=== PATIENT | male | born 1985 ===

== ENCOUNTER 2016-11-30 05:24 | Inpatient (IN) | payer MEDICAID, OTHER ==
--- NOTE | 2016-11-30 05:42 | C.PDOC ---
History Of Present Illness Pt was seen and medically cleared at [facility] and accepted in transfer by dr claudio for depression. Pt denies suicidal or homicidal ideation Time Seen by Provider: 11/30/16 05:39 Chief Complaint (Nursing): Psychiatric Evaluation History Per: Patient History/Exam Limitations: no limitations Onset/Duration Of Symptoms: Days Current Symptoms Are (Timing): Still Present Suicide/Self Injury Attempted (Context): None Modifying Factor(s): None Severity: Moderate Pain Scale Rating Of: 4 Associated Symptoms: Depression Involuntary Hold By: None Recent travel outside of the [place]: No Additional History Per: Patient Past Medical History Reviewed: Historical Data, Nursing Documentation, Vital Signs Vital Signs: Last Vital Signs Temp 97.2 F L 11/30/16 05:34 Pulse 82 11/30/16 05:34 Resp 20 11/30/16 05:34 BP 119/82 11/30/16 05:34 Pulse Ox 100 11/30/16 05:34 - Medical History PMH: Depression Family History: States: No Known Family Hx - Social History Hx Alcohol Use: Yes Hx Substance Use: Yes - Immunization History Hx Tetanus Toxoid Vaccination: No Hx Influenza Vaccination: No Hx Pneumococcal Vaccination: No Review Of Systems Constitutional: Negative for: Fever, Chills Cardiovascular: Negative for: Chest Pain Respiratory: Negative for: Shortness of Breath Gastrointestinal: Negative for: Abdominal Pain Musculoskeletal: Negative for: Back Pain Skin: Negative for: Rash Neurological: Negative for: Weakness Psych: Positive for: Depression Physical Exam - Physical Exam Appears: Non-toxic, No Acute Distress Skin: Warm, Dry Chest: Symmetrical Cardiovascular: Rhythm Regular Respiratory: No Rales, No Rhonchi, No Wheezing Gastrointestinal/Abdominal: Soft, No Tenderness, No Distention Back: No CVA Tenderness Extremity: Normal ROM Extremity: Bilateral: Atraumatic Neurological/Psych: Oriented x3 Gait: Steady ED Course And Treatment O2 Sat by Pulse Oximetry: 100 Pulse Ox Interpretation: Normal Disposition Discussed With : Fernie Claudio Comment: accepted the pt on his service and took over the care at 5:40 AM Doctor Will See Patient In The: Hospital Counseled Patient/Family Regarding: Studies Performed, Diagnosis - Disposition Disposition: HOSPITALIZED Disposition Time: 05:40 Condition: FAIR - POA Present On Arrival: None - Clinical Impression Clinical Impression: Depression Decision To Admit - Pt Status Changed To: Hospital Disposition Of: Inpatient - Admit Certification Admit to Inpatient:: After my assessment, the patient will require hospitalization for at least two midnights. This is because of the severity of symptoms shown, intensity of services needed, and/or the medical risk in this patient being treated as an outpatient. - InPatient: Physician Admission Certification: I certify that this patient requires 2 or more midnights of care for the following reason:: After my assessment, the patient will require hospitalization for at least two midnights. This is because of the severity of symptoms shown, intensity of services needed, and/or the medical risk in this patient being treated as an outpatient. - . Bed Request Type: Psychiatry Admitting Physician: Fernie Claudio Patient Diagnosis: Depression
[2016-11-30] MEDS: Multiple Vitamins Tab PO SCH (10:26)
--- NOTE | 2016-11-30 12:21 | PCM.PSYCH ---
Initial Psychiatric Evaluation - Initial Psychiatric Evaluation Type of Admission: Voluntary Legal Status: Capacity Chief Complaint (in patient's own words): "I need to really stop alcohol" History of Present Illness and Precipitating Events: The patient is seen, chart reviewed and case discussed. This is a 31-year-old male, single but has a girlfriend, lives with his mother and brother in [place], [place]. 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 The patient is here because he reportedly intentionally drank too much alcohol and took couple of Percocet pills. He states he did not intend to kill himself but was very "stressed and depressed." The patient admits to drinking "a lot" and when asked to specify he states more than 2 bottles of liquor and some beer. He increased the last 9 months but started when he was 18 years old. He is also a heavy marijuana smoker and he is smokes cigarettes on and off. He denies all other drugs including opiates. His urine is negative for opiates despite the alleged recent use. He says he feels depressed but he looks less so today. No suicidal ideation today. he also does not have any wdw sxs at this point. Past psych history: He had another suicide attempt similar way when he was 25 years old. He was not admitted back then. Family psych history: Biological father had alcoholism. Medical history: He has been diagnosed with MAC, a lung dz. He was supposed to be on meds but he quit in July due to drinking. The patient wants to go to an inpatient rehabilitation Current Medications: Active Medications Generic Name Dose Route Start Last Admin Trade Name Khushboo PRN Reason Stop Dose Admin Chlordiazepoxide 25 mg 11/30/16 08:45 Librium PO Q4H PRN Alcohol Withdrawal Clonidine HCl 0.1 mg 11/30/16 08:45 Catapres PO Q4H PRN Symptoms of alcohol withdrawl Escitalopram Oxalate 10 mg 11/30/16 10:00 11/30/16 10:26 Lexapro PO 10 mg DAILY SUHA Administration Folic Acid 1 mg 11/30/16 10:00 11/30/16 10:26 Folic Acid PO 1 mg DAILY SUHA Administration Gabapentin 100 mg 11/30/16 10:00 11/30/16 10:25 Neurontin PO 100 mg TID SUHA Administration Hydroxyzine HCl 50 mg 11/30/16 08:46 Atarax PO Q6H PRN Anxiety Ibuprofen 600 mg 11/30/16 08:46 Motrin Tab PO Q6H PRN Pain, moderate (4-7) Multivitamins 1 tab 11/30/16 10:00 11/30/16 10:26 Hexavitamin PO 1 tab DAILY SUHA Administration Pneumococcal Polyvalent Vaccine 0.5 ml 12/02/16 10:00 Pneumovax 23 Vaccine IM 12/02/16 10:01 .ONCE ONE Thiamine HCl 100 mg 11/30/16 10:00 11/30/16 10:26 Vitamin B1 Tab PO 100 mg DAILY SUHA Administration Trazodone HCl 100 mg 11/30/16 08:47 Desyrel PO HS PRN Insomnia Past Psychiatric History - Past Psychiatric History Previous Treatment History: None Pertinent Medical Hx (Current Medical&Sleep Prob, Allergies): Allergies Allergy/AdvReac Type Severity Reaction Status Date / Time No Known Allergies Allergy Verified 11/30/16 05:39 No Known Home Med 11/30/16 Review of Systems - Neurological Neurological: UNREMARKABLE - Psychiatric Psychiatric: Abnormal Sleep Pattern, Anxiety, Difficulty Concentrating. absent : Hallucinations, Homicidal Ideation, Suicidal Ideation Mental Status Examination - Personal Presentation Personal Presentation: Looks stated age - Affect Affect: Broad - Motor Activity Motor Activity: Calm - Reliability in Providing Information Reliability in Providing Information: Good - Speech Speech: Organized - Mood Mood: Anxious - Formal Thought Process Formal Thought Process: No Impairment - Cognitive Functions Orientation: Person, Place, Situation, Time Sensorium: Alert Attention/Concentration: Easily distracted Estimate of Intelligence: Average Judgement: Intact, as evidence by: Insight regarding need for hospitalization Memory: Recent intact, as evidence by: Ability to recall events of the day, Remote intact, as evidenced by: Abilit to recall sig. life events - Risk Risk: Withdrawal, Diminished functioning - Strength & Assets Inventory Strength & Assets Inventory: Cooperative DSM 5 DX - DSM 5 DSM 5 Diagnosis: Substance-induced mood d/o - depressed Alcohol use d/o - severe Cannabis use d/o - severe - Recommended/Plan of Treatment Treatment Recommendations and Plan of Treatment: Remeron for depressive sxs naltrexone for alcohol crabings Gabapentin for augmentation As needed meds and vitamins Attend groups and activities [place] for abstinence and CBT for relapse prevention Support and psychoeducation Consider and encourage MAT ie Vivitrol Refer to after care in rehab Sx-based detox 33 min Projected ELOS: 4-5 days Prognosis: good w treatment - Smoking Cessation Smoking Cessation Initiated: Yes
[2016-12-01] MEDS: Multiple Vitamins Tab PO SCH ×2 (11:02→11:56)
[2016-12-02] MEDS ORDERED: Pneumococcal 23-Valent Vaccine IM ONE (10:00)
[2016-12-02] MEDS: Multiple Vitamins Tab PO SCH (10:22)
--- NOTE | 2016-12-02 23:58 | PCM.PYCHPN ---
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 Medical Problems: NOTHING ACUTE Diagnostic Results: REVIEWED DSM 5 Symptoms Update: NO APPETITE INSOMNIA Medication Change: No Medical Record Reviewed: Yes Mental Status Examination - Cognitive Function Orientation: Person, Place, Situation, Time Memory: Intact Attention: WNL Concentration: WNL Association: WNL Fund of Knowledge: WNL - Mood Mood: Depressed, Anxious - Affect Affect: Broad - Speech Speech: Appropriate - Formal Thought Process Formal Thought Process: No Impairment - Suicidal Ideation Suicidal Ideation: No - Homicidal Ideation Homicidal Ideation: No Goal/Treatment Plan - Goal/Treatment Plan Need for Continued Stay: Discharge may exacerbated symptoms Progress Toward Problem(s) and Goals/Treatment Plan: SUBINDUCED MOOD DISORDER TAKING MEDS ALCOHOL USE DISORDER NALTREXONE Estimated Date of D/C: 12/06/16 - Smoking Cessation Smoking Cessation Initiated: Yes
--- NOTE | 2016-12-03 03:02 | PCM.PYCHPN ---
Psychiatric Progress Note - Psychiatric Progress Note Patient seen today, length of contact: 15 MIN Patient Chief Complaint: I TOOK OFF THE BLANKET OTHERSCWEREC STARTING TO CALL ME JOSEMANUEL FROM [employer] AND I GOT IRRITATED Problems Identified/Issues Discussed: WITHDRAWAL SYMPTOMS AFTERCARE Medical Problems: NOTHING ACUTE Diagnostic Results: REVIWED Medication Change: Yes (DOSES CHANGE EACH DAY DETOX) Medical Record Reviewed: Yes Mental Status Examination - Cognitive Function Orientation: Person, Place, Situation, Time Memory: Intact Attention: WNL Concentration: WNL Association: WNL Fund of Knowledge: WNL - Mood Mood: Depressed, Anxious - Affect Affect: Broad - Speech Speech: Appropriate - Suicidal Ideation Suicidal Ideation: No - Homicidal Ideation Homicidal Ideation: No Goal/Treatment Plan - Goal/Treatment Plan Need for Continued Stay: Discharge may exacerbated symptoms Progress Toward Problem(s) and Goals/Treatment Plan: SUBSXTANCE INDUCED MOOD DISORDER TAKING MEDS ALCOHOL USE DISORDER NALTREXONE Estimated Date of D/C: 12/06/16 - Smoking Cessation Smoking Cessation Initiated: Yes
[2016-12-03] MEDS: Multiple Vitamins Tab PO SCH (09:55)
--- NOTE | 2016-12-03 13:52 | PCM.PYCHPN ---
Psychiatric Progress Note - Psychiatric Progress Note Patient seen today, length of contact: 16 min Patient Chief Complaint: "I am better" Problems Identified/Issues Discussed: The pt is seen, chart reviewed, case discussed with staff. Support given, CBT and [place] used briefly No new symptoms reported, improving slowly and needs some more time No SEs from medications, risks discussed. After care discussed - He now says he will move to [place] where his GF who is lives. Medication Change: Yes (detox changes daily) Medical Record Reviewed: Yes Mental Status Examination - Cognitive Function Orientation: Person, Place, Situation, Time Memory: Intact Attention: WNL Concentration: WNL Association: WNL Fund of Knowledge: WN - Mood Mood: Depressed, Anxious - Affect Affect: Broad - Speech Speech: Appropriate - Formal Thought Process Formal Thought Process: No Impairment - Suicidal Ideation Suicidal Ideation: No - Homicidal Ideation Homicidal Ideation: No Goal/Treatment Plan - Goal/Treatment Plan Need for Continued Stay: Discharge may exacerbated symptoms Progress Toward Problem(s) and Goals/Treatment Plan: Remeron for depressive sxs naltrexone for alcohol cravings Gabapentin for augmentation As needed meds and vitamins Attend groups and activities [place] for abstinence and CBT for relapse prevention Support and psychoeducation Consider and encourage MAT ie Vivitrol Refer to after care in rehab Sx-based detox Estimated Date of D/C: 12/06/16
--- NOTE | 2016-12-04 10:20 | PCM.RRTMUL ---
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 Rapid called after patient felt "hot heavy head" and laid down on the floor. Patient was awake, alert and able to provide history. Patient ate this morning, spoke on the phone and began to feel his head was "hot and heavy". He laid down on the floor as witnessed by staff 2/2 symptoms. Patient with history of congenital heart disease, reported pacemaker and heart valve surgery. VS:97.9, 186/123, HR 144. Patient given dose of Clonidine. Stat EKG, CBC, CMP, STANLEY, CXR ordered. Transferred to Telemetry. Medicine team to follow. - A) Initial Vital Signs: Blood Pressure: 186/123 Pulse Rate: 144 Respiratory Rate: 20 Temperature: 97.9 F - B) Neurological Status (Select all that apply): Alert, Responsive, Oriented - C) Respiratory Oxygen Delivery Method: Room Air - Constitutional Appears: In Acute Distress - Head Head Exam: NORMAL INSPECTION, NORMOCEPHALIC - Eyes Eye Exam: EOMI, Normal appearance - Respiratory Exam Respiratory Exam: Clear to Ausculation Bilateral, NORMAL BREATHING PATTERN - Cardiovascular Exam Cardiovascular Exam: Tachycardia, REGULAR RHYTHM, +S1, +S2 - GI/Abdominal Exam GI & Abdominal Exam: Soft - Neurological Exam Neurological Exam: Alert, Awake, Oriented x3 - Extremities Exam Extremities Exam: Full ROM, Normal Inspection. absent: Pedal Edema Plan - B. Assessment of Findings&Treatment Plan atient with history of congenital heart disease, reported pacemaker and heart valve surgery. VS:97.9, 186/123, HR 144. Patient given dose of Clonidine. Stat EKG, CBC, CMP, STANLEY, CXR ordered. EKG showed NSR 102 bpm. Transferred to Telemetry. Medicine team to follow.
--- NOTE | 2016-12-04 11:42 | PCM.PYCHPN ---
Psychiatric Progress Note - Psychiatric Progress Note Patient seen today, length of contact: 16 min Patient Chief Complaint: i m feeling anxious. Problems Identified/Issues Discussed: Patient was seen and evaluated, chart reviewed and discussed with the nurse. Patient remained irritable and agitated. He reports anxiety and shortness of breath. He reports depressed mood and feelings of hopelessness and helplessness. He is taking medication and denied any side effects. His blood pressure and heart rate started getting high. rapid response was called and patient was seen by the medical Dr. Patient will be transferred to the medical floor soon. Medication Change: Yes (DOSES CHANGE EACH DAY DETOX) Medical Record Reviewed: Yes Mental Status Examination - Cognitive Function Orientation: Person, Place, Situation, Time Memory: Intact Attention: WNL Concentration: WNL Association: WNL Fund of Knowledge: WNL - Mood Mood: Depressed, Anxious - Affect Affect: Broad - Speech Speech: Appropriate - Formal Thought Process Formal Thought Process: No Impairment - Suicidal Ideation Suicidal Ideation: No - Homicidal Ideation Homicidal Ideation: No Goal/Treatment Plan - Goal/Treatment Plan Need for Continued Stay: Discharge may exacerbated symptoms Progress Toward Problem(s) and Goals/Treatment Plan: Remeron for depressive sxs naltrexone for alcohol cravings Gabapentin for augmentation As needed meds and vitamins Attend groups and activities [place] for abstinence and CBT for relapse prevention Support and psychoeducation Consider and encourage MAT ie Lorel Refer to after care in rehab Sx-based detox Estimated Date of D/C: 12/06/16
--- NOTE | 2016-12-04 11:55 | RAD ---
Chest x-ray single frontal view History: Syncope. Comparison: None available. Findings: Hyperinflation suggestive for COPD and or emphysematous changes. No focal infiltrate or effusion. Surgical clips project over the left lung apex. Suggestion of an aortic stent in place. Scoliotic curvature of the spine. Impression: No focal infiltrate or effusion.
[2016-12-04] MEDS: Multiple Vitamins Tab PO SCH (12:02)
[2016-12-04 12:09] LABS: ALBUMIN 4.1 g/dL (3.5-5.0)
[2016-12-04 12:10] LABS: BASO % 0.3 % (0.0-2.0); EOS # 0.2 K/uL (0.0-0.7); EOS % 3.2 % (0.0-4.0); HEMOGLOBIN 14.1 g/dL (12.0-18.0); LYMPH # 1.3 K/uL (1.0-4.3); LYMPH % 25.7 % (20.0-40.0); MEAN CELL VOLUME 82.6 fL (80.0-94.0); MEAN CORPUSCULAR HEMOGLOBIN 26.9 pg (27.0-31.0); MEAN CORPUSCULAR HGB CONC 32.5 g/dL (33.0-37.0); MEAN PLATELET VOLUME 10.1 fL (7.2-11.7); MONO # 0.6 K/uL (0.0-0.8); MONO % 12.5 % (0.0-10.0); NEUT % 58.3 % (50.0-75.0); RBC 5.25 Mil/uL (4.40-5.90); RED CELL DISTRIBUTION WIDTH 13.7 % (11.5-14.5); WHITE BLOOD COUNT 5.1 K/uL (4.8-10.8)
[2016-12-04 12:12] LABS: ALB/GLOB RATIO 1.2 (1.0-2.1); ALT/SGPT 30 U/L (21-72); AST/SGOT 30 U/L (17-59); BLOOD UREA NITROGEN 12 mg/dL (9-20); GFR AFRICAN-AMERICAN > 60; GFR NON-AFRICAN AMERICAN > 60
[2016-12-04 12:13] LABS: CALCIUM 9.4 mg/dl (8.6-10.4); MAGNESIUM 2.1 mg/dL (1.6-2.3)
[2016-12-04 12:20] LABS: CK-MB 0.41 ng/mL (0.0-3.38)
--- NOTE | 2016-12-04 15:04 | CT ---
PROCEDURE: CT HEAD WITHOUT CONTRAST. HISTORY: heavy head COMPARISON: None available. TECHNIQUE: Axial computed tomography images were obtained through the head/brain without intravenous contrast. Radiation dose: Total exam DLP = 818.32 mGy-cm. This CT exam was performed using one or more of the following dose reduction techniques: Automated exposure control, adjustment of the mA and/or kV according to patient size, and/or use of iterative reconstruction technique. FINDINGS: HEMORRHAGE: No intracranial hemorrhage. BRAIN: No mass effect or edema. No atrophy or chronic microvascular ischemic changes. VENTRICLES: Unremarkable. No hydrocephalus. CALVARIUM: Unremarkable. PARANASAL SINUSES: Unremarkable as visualized. No significant inflammatory changes. MASTOID AIR CELLS: Unremarkable as visualized. No inflammatory changes. OTHER FINDINGS: None. IMPRESSION: Normal CT of the Head. No intracranial mass, hemorrhage or evidence acute infarct.
--- NOTE | 2016-12-04 16:34 | CP.PCM.CON ---
<Charla Lewis - Last Filed: 12/04/16 17:12> History of Present Illness - History of Present Illness History of Present Illness: Medicine Consult Note- Dr. 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 Patient was diagnosed with MAC in 02/2016 and since then, has started drinking heavily, about 1 liter on average per day. Patient reports feeling depressed since his diagnosis of MAC. Patient reports trying to hurt himself twice by taking Percocet with alcohol and Tylenol with alcohol. Patient has a history of congenital heart disease. At , he had an aortic valve replacement. He has had two stents place, last operation was at 18 years old. Patient was seen and examined at bedside in no acute distress. WASTE PICKER was called this morning due to the patient feeling like his "head was going to explode" and "chest pressure", lightheadedness, and "feeling his pulse in his brain". Currently, the patient states he only has pressure on his chest. He denies feeling lightheaded, headache, palpitations, abdominal pain, nausea, vomiting, and vision changes. Patient denies HIV history. PMd: none PMHx: MAC disgnosed 02/2016; congential heart disease- aortic valve replacement at ; stent at 18 year old PSx: aortic valve replacement at ; stent at 18 year old FamHx: Father- stroke; "several family members have diabetes" Medications: none Allergies: NKDA Review of Systems - Constitutional Constitutional: absent: Chills, Fever, Weight Gain, Weight Loss, Weakness - EENT Eyes: absent: Change in Vision, Other Visual Disturbances Nose/Mouth/Throat: absent: Dysphagia, Sore Throat - Cardiovascular Cardiovascular: Chest Pain. absent: Lightheadedness - Respiratory Respiratory: Dyspnea. absent: Cough - Gastrointestinal Gastrointestinal: absent: Abdominal Pain, Nausea, Vomiting - Genitourinary Genitourinary: absent: Dysuria, Urinary Frequency - Integumentary Integumentary: absent: Unusual Bruising - Neurological Neurological: absent: Headaches, Loss of Vision - Psychiatric Psychiatric: Anxiety, Depression - Endocrine Endocrine: absent: Fatigue, Palpitations - Hematologic/Lymphatic Hematologic: absent: Easy Bleeding, Easy Bruising Past Patient History - Infectious Disease Hx of Infectious Diseases: None - Past Social History Smoking Status: Light Smoker < 10 Cigarettes Daily - CARDIAC Hx Cardiac Disorders: Yes Other/Comment: h/o acute valve replacement - PULMONARY Hx Respiratory Disorders: Yes Other/Comment: h/o MAC- lung disease - NEUROLOGICAL Hx Neurological Disorder: No - HEENT Hx HEENT Problems: No - RENAL Hx Chronic Kidney Disease: No - ENDOCRINE/METABOLIC Hx Endocrine Disorders: No - HEMATOLOGICAL/ONCOLOGICAL Hx Blood Disorders: No - INTEGUMENTARY Hx Dermatological Problems: No - MUSCULOSKELETAL/RHEUMATOLOGICAL Hx Musculoskeletal Disorders: No - GASTROINTESTINAL Hx Gastrointestinal Disorders: Yes Other/Comment: Aortic valve replacement - GENITOURINARY/GYNECOLOGICAL Hx Genitourinary Disorders: No - PSYCHIATRIC Hx Substance Use: Yes - SURGICAL HISTORY Hx Surgeries: Yes Hx Valve Replacement: Yes (from and at age 18 y/o) - ANESTHESIA Hx Anesthesia: Yes Hx Anesthesia Reactions: No Hx Malignant Hyperthermia: No Has any member of the family had a problem w/ anesthesia?: No Meds Allergies/Adverse Reactions: Allergies Allergy/AdvReac Type Severity Reaction Status Date / Time No Known Allergies Allergy Verified 11/30/16 05:39 - Medications Medications: Current Medications Amlodipine Besylate (Norvasc) 5 mg PO DAILY [facility] Last Admin: 12/04/16 12:01 Dose: 5 mg Chlordiazepoxide (Librium) 25 mg PO Q4H PRN PRN Reason: Alcohol Withdrawal Last Admin: 12/03/16 23:27 Dose: 25 mg Clonidine HCl (Catapres) 0.1 mg PO Q4H PRN PRN Reason: Symptoms of alcohol withdrawl Escitalopram Oxalate (Lexapro) 10 mg PO DAILY [facility] Last Admin: 12/04/16 12:02 Dose: 10 mg Folic Acid (Folic Acid) 1 mg PO DAILY [facility] Last Admin: 12/04/16 12:02 Dose: 1 mg Gabapentin (Neurontin) 100 mg PO TID [facility] Last Admin: 12/04/16 12:02 Dose: 100 mg Hydralazine HCl (Apresoline) 10 mg IVP Q6H PRN PRN Reason: Systolic Blood Pressure Hydroxyzine HCl (Atarax) 50 mg PO Q6H PRN PRN Reason: Anxiety Last Admin: 12/03/16 21:51 Dose: 50 mg Ibuprofen (Motrin Tab) 600 mg PO Q6H PRN PRN Reason: Pain, moderate (4-7) Last Admin: 12/03/16 23:24 Dose: 600 mg Multivitamins (Hexavitamin) 1 tab PO DAILY [facility] Last Admin: 12/04/16 12:02 Dose: 1 tab Naltrexone HCl (Revia) 50 mg PO DAILY [facility] Last Admin: 12/04/16 13:06 Dose: 50 mg Thiamine HCl (Vitamin B1 Tab) 100 mg PO DAILY [facility] Last Admin: 12/04/16 12:02 Dose: 100 mg Trazodone HCl (Desyrel) 100 mg PO HS PRN PRN Reason: Insomnia Last Admin: 12/03/16 21:51 Dose: 100 mg Physical Exam - Constitutional Appears: No Acute Distress - Head Exam Head Exam: NORMAL INSPECTION, NORMOCEPHALIC - Eye Exam Eye Exam: EOMI, Normal appearance - ENT Exam ENT Exam: Mucous Membranes Moist - Neck Exam Neck exam: Positive for: Normal Inspection - Respiratory Exam Respiratory Exam: Clear to Auscultation Bilateral, NORMAL BREATHING PATTERN. absent: Rhonchi, Wheezes - Cardiovascular Exam Cardiovascular Exam: REGULAR RHYTHM, +S1, +S2 - GI/Abdominal Exam GI & Abdominal Exam: Normal Bowel Sounds, Soft. absent: Distended - Extremities Exam Extremities exam: Positive for: normal inspection. Negative for: calf tenderness, pedal edema, tenderness - Neurological Exam Neurological exam: Alert, Oriented x3 - Psychiatric Exam Psychiatric exam: Normal Affect, Normal Mood - Skin Skin Exam: Dry, Intact, Normal Color, Warm Results - Vital Signs Recent Vital Signs: Last Vital Signs Temp 98.3 F 12/04/16 15:33 Pulse 92 H 12/04/16 15:51 Resp 20 12/04/16 15:33 BP 126/65 12/04/16 15:33 Pulse Ox 99 12/04/16 15:33 - Labs Result Diagrams: 12/04/16 11:50 12/04/16 11:50 Labs: Laboratory Results - last 24 hr 12/04/16 12/04/16 11:50 11:50 WBC 5.1 RBC 5.25 Hgb 14.1 Hct 43.4 MCV 82.6 MCH 26.9 L MCHC 32.5 L RDW 13.7 Plt Count 218 MPV 10.1 Neut % (Auto) 58.3 Lymph % (Auto) 25.7 [place] % (Auto) 12.5 H Eos % (Auto) 3.2 Baso % (Auto) 0.3 Neut # 3.0 Lymph # 1.3 [place] # 0.6 Eos # 0.2 Baso # 0.0 Sodium 140 Potassium 3.6 Chloride 103 Carbon Dioxide 25 Anion Gap 15 BUN 12 Creatinine 0.8 Est GFR ( Amer) > 60 Est GFR (Non-Af Amer) > 60 Random Glucose 105 Calcium 9.4 Phosphorus 1.3 L Magnesium 2.1 Total Bilirubin 0.4 AST 30 ALT 30 Alkaline Phosphatase 91 Total Creatine Kinase 59 CK-MB (Mass) 0.41 Troponin I, Quant < 0.0120 Total Protein 7.6 Albumin 4.1 Globulin 3.4 Albumin/Globulin Ratio 1.2 Assessment & Plan (1) Hypertensive emergency Assessment and Plan: Monitor BP Norvasc 5mg PO daily Clonidine 0.1mg PO Q4 Status: Acute (2) Chest pressure Assessment and Plan: Transferred to telemetry EKG- nsm 102bpm CMP, CBC ordered STANLEY x 1 negative, pending 2 results Chest xray: no infiltrate or effusion; surgical clips at left lung apex; suggestion of aortic stent in place. Chest CT ordered ECHO ordered Status: Acute (3) Alcohol abuse Assessment and Plan: Management as per Psychiatry Librium taper 25mg PO Q4 Gabapentin 100mg PO TID Naltrexone 50mg PO daily Folic Acid 1mg PO daily Thiamine 100mg PO Daily Multivitamins Status: Acute (4) History of aortic valve replacement Assessment and Plan: History of two stents. Chest xray: no infiltrate or effusion; surgical clips at left lung apex; suggestion of aortic stent in place. 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 F/U HIV 1/2 Status: Acute (6) Depression with anxiety Assessment and Plan: Management as per Psychiatry Lexapro 10mg PO Daily Hydroxyzine 1 tab PO daily Status: Acute (7) Prophylactic measure Assessment and Plan: SCDs Pepcid 20mg BID Regular diet Fall Precaution Status: Acute <Pavan Singleton - Last Filed: 12/04/16 18:29> Meds - Medications Medications: Current Medications Amlodipine Besylate (Norvasc) 5 mg PO DAILY [facility] Last Admin: 12/04/16 12:01 Dose: 5 mg Chlordiazepoxide (Librium) 25 mg PO Q4H PRN PRN Reason: Alcohol Withdrawal Last Admin: 12/03/16 23:27 Dose: 25 mg Clonidine HCl (Catapres) 0.1 mg PO Q4H PRN PRN Reason: Symptoms of alcohol withdrawl Escitalopram Oxalate (Lexapro) 10 mg PO DAILY [facility] Last Admin: 12/04/16 12:02 Dose: 10 mg Folic Acid (Folic Acid) 1 mg PO DAILY [facility] Last Admin: 12/04/16 12:02 Dose: 1 mg Gabapentin (Neurontin) 100 mg PO TID [facility] Last Admin: 12/04/16 17:48 Dose: 100 mg Heparin Sodium (Porcine) (Heparin) 5,000 units SC Q12 [facility] Hydralazine HCl (Apresoline) 10 mg IVP Q6H PRN PRN Reason: Systolic Blood Pressure Hydroxyzine HCl (Atarax) 50 mg PO Q6H PRN PRN Reason: Anxiety Last Admin: 12/03/16 21:51 Dose: 50 mg Ibuprofen (Motrin Tab) 600 mg PO Q6H PRN PRN Reason: Pain, moderate (4-7) Last Admin: 12/03/16 23:24 Dose: 600 mg Multivitamins (Hexavitamin) 1 tab PO DAILY [facility] Last Admin: 12/04/16 12:02 Dose: 1 tab Naltrexone HCl (Revia) 50 mg PO DAILY [facility] Last Admin: 12/04/16 13:06 Dose: 50 mg Thiamine HCl (Vitamin B1 Tab) 100 mg PO DAILY [facility] Last Admin: 12/04/16 12:02 Dose: 100 mg Trazodone HCl (Desyrel) 100 mg PO HS PRN PRN Reason: Insomnia Last Admin: 12/03/16 21:51 Dose: 100 mg Results - Vital Signs Recent Vital Signs: Last Vital Signs Temp 98.3 F 12/04/16 15:33 Pulse 92 H 12/04/16 15:51 Resp 20 12/04/16 15:33 BP 126/65 12/04/16 15:33 Pulse Ox 99 12/04/16 15:33 - Labs Result Diagrams: 12/04/16 11:50 12/04/16 11:50 Labs: Laboratory Results - last 24 hr 12/04/16 12/04/16 11:50 11:50 WBC 5.1 RBC 5.25 Hgb 14.1 Hct 43.4 MCV 82.6 MCH 26.9 L MCHC 32.5 L RDW 13.7 Plt Count 218 MPV 10.1 Neut % (Auto) 58.3 Lymph % (Auto) 25.7 [place] % (Auto) 12.5 H Eos % (Auto) 3.2 Baso % (Auto) 0.3 Neut # 3.0 Lymph # 1.3 [place] # 0.6 Eos # 0.2 Baso # 0.0 Sodium 140 Potassium 3.6 Chloride 103 Carbon Dioxide 25 Anion Gap 15 BUN 12 Creatinine 0.8 Est GFR ( Amer) > 60 Est GFR (Non-Af Amer) > 60 Random Glucose 105 Calcium 9.4 Phosphorus 1.3 L Magnesium 2.1 Total Bilirubin 0.4 AST 30 ALT 30 Alkaline Phosphatase 91 Total Creatine Kinase 59 CK-MB (Mass) 0.41 Troponin I, Quant < 0.0120 Total Protein 7.6 Albumin 4.1 Globulin 3.4 Albumin/Globulin Ratio 1.2 Attending/Attestation - Attestation I have personally seen and examined this patient.: Yes I have fully participated in the care of the patient.: Yes I have reviewed all pertinent clinical information: Yes Notes (Text): 12/04/16 18:27 Medical attending: Patient was seen and examined by me, agrees the above note by medical insurance biller. The patient had an WASTE PICKER over at 5 E. He serum soft down on the ground a blood pressure check showed he had very elevated blood pressures. I specifically asked the patient if he could've been going through drug or alcohol withdrawal. He insists that he is not going through withdrawal. He's currently being treated for alcohol abuse and depression over 5 E. Because of his previous medical history as well as the vital signs findings the patient was moved to telemetry. He'll have further monitoring. Jordyn check a 2- D echo, check for new lab work, as well as cardiac enzymes. With regards to the patient's elevated blood pressure, record add on hydralazine 10 mg IV to be given as needed if systolic blood pressures greater than 160. Thank you very much, Pavan Singleton
[2016-12-04 21:23] LABS: CK-MB 0.26 ng/mL (0.0-3.38)
[2016-12-05 00:28] VITALS: RESP 20
[2016-12-05 06:14] LABS: BASO % 0.3 % (0.0-2.0); EOS # 0.2 K/uL (0.0-0.7); EOS % 2.6 % (0.0-4.0); HEMOGLOBIN 13.7 g/dL (12.0-18.0); LYMPH # 2.4 K/uL (1.0-4.3); LYMPH % 38.3 % (20.0-40.0); MEAN CELL VOLUME 82.6 fL (80.0-94.0); MEAN CORPUSCULAR HEMOGLOBIN 26.8 pg (27.0-31.0); MEAN CORPUSCULAR HGB CONC 32.4 g/dL (33.0-37.0); MEAN PLATELET VOLUME 9.5 fL (7.2-11.7); MONO # 0.6 K/uL (0.0-0.8); MONO % 8.9 % (0.0-10.0); NEUT # 3.1 K/uL (1.8-7.0); NEUT % 49.9 % (50.0-75.0); NRBC % 0.1 % (0.0-2.0); RBC 5.09 Mil/uL (4.40-5.90); RED CELL DISTRIBUTION WIDTH 13.7 % (11.5-14.5); WHITE BLOOD COUNT 6.2 K/uL (4.8-10.8)
[2016-12-05 06:36] LABS: ALBUMIN 3.8 g/dL (3.5-5.0)
[2016-12-05 06:39] LABS: AST/SGOT 27 U/L (17-59); GFR AFRICAN-AMERICAN > 60; GFR NON-AFRICAN AMERICAN > 60
[2016-12-05 06:40] LABS: ALB/GLOB RATIO 1.2 (1.0-2.1); ALT/SGPT 30 U/L (21-72); BLOOD UREA NITROGEN 14 mg/dL (9-20); CALCIUM 8.8 mg/dl (8.6-10.4); MAGNESIUM 2.1 mg/dL (1.6-2.3)
[2016-12-05] MEDS: Multiple Vitamins Tab PO SCH ×2 (11:00→11:41)
--- NOTE | 2016-12-05 11:28 | CARD ---
APPROVED REPORT EKG Measurement Heart [id number] <Conclusion> Sinus tachycardia Right axis deviation Pulmonary disease pattern Abnormal ECG
--- NOTE | 2016-12-05 13:17 | CP.PCM.CON ---
History of Present Illness - History of Present Illness History of Present Illness: COMPREHENSIVE HISTORY & PHYSICAL EXAM HPI CARDIOLOGY CONSULTED FOR PT HAS CHD WITH STENT PER MOTHER , PT WAS BORN WITH CHD , CO-ARCTATION OF AORTA AND HAD SURGERY DONE AT THAT TIME [place] . AT AGE HE AGAIN HAD REPLASE AND AORTA WAS STENTED . SINCE FEW YEARS PT HAS NO CARDIAC F/U PT WAS ADMITTED IN PSYCH FLOOR FOR ALCOHOL ABUSE AND SEVERE DEPRESSION WITH SUICIDAL IDEATION ALSO HAS ATYPICAL CHEST WALL PAIN PAST HIST. MAC INFECTION OF LUNG ON 3 AB PERSONAL HIST: Smoking. Y Alcohol. Y Allergy N Travel_- . FAMILY HIST : ROS : Constitutional: Negative for weight change, chills, night sweats, Eyes: Negative for redness, swelling, itching, discharge, vision changes, blurry vision, double vision, glaucoma, cataracts, Ears: Negative for hearing loss, ringing, , tinnitus, vertigo Nose: Negative for rhinorrhea, stuffiness, sniffing, itching, postnasal drip, discoloration, nasal congestion and epistaxis. Throat: Negative for throat clearing, sore throat, hoarseness, difficulty swallowing and difficulty speaking. Respiratory: Negative for cough, , sputum production, chest tightness, wheezing, pleuritic chest pain ,daytime somnolence, chronic cough, hemoptysis, snoring at night, Cardiovascular: POS for chest pain, palpitations, NO orthopnea, PND, Edema of legs, leg cramps, angina, claudication, , irregular heartbeat, Neurology: Negative for irritability, muscle weakness, numbness and tingling, seizures, tremors, migraines, slurred speech, syncope, memory loss, mood changes , recurrent headaches Gastrointestinal: Negative for difficulty swallowing, diarrhea, constipation, black stools, rectal bleeding, nausea, flatulence, reflux, poor appetite, changes in bowel habits, abdominal pain Genitourinary: Negative for frequent urination, hematuria, discharge, incontinence, urinary retention, frequent UTI, Psychiatric: Negative for depression, anxiety/panic, suicidal tendencies, Musculoskeletal: Negative for swollen joints, back pain, , neck pain, morning stiffness of joints, . Skin: Negative for rash, ulcers, itching, dry skin and pigmented lesions. P/E: Constitutional: Appears stated age and in no apparent distress. Head: Normocephalic. Ears: External ear canals patent without inflammation. Tympanic membranes intact with normal light reflex and landmark. Eyes: Pupils are central, bilaterally equal, symmetrical and reacts to light with normal movements and no icterus or pallor. Nose: External nares are patent. Mucosa is pink Mouth-Throat: Good general appearance and condition. No post-pharyngeal/oropharyngeal erythema and tonsillar hypertrophy. Good dental hygiene. Neck-Lymphatic: Neck is supple with normal ROM, no thyromegaly, lymph nodes or masses. JVD is normal with no carotid bruit. Lungs: Clear to percussion and auscultation with bilateral normal air entry. Cardiovascular: S1 and S2 are normal WANG IN PULM AREA AND LEFT CLAVICLE GI Exam: No hepatomegaly. Abdomen is soft and non-tender. No Organomegaly , masses or hernias are evident and bowel sounds are normal and active. Neurology: Higher function and all cranial nerves intact, with no gross motor or sensory deficit. Superficial and deep reflexes are normal with downwards planters. No cerebellar deficit with normal gait. Musculoskeletal: No tender spots with normal curvature of the spine with no swelling or restricted ROM of the small and large joints. Extremities: Homans sign absent. Intact pulses with no pitting edema, calf tenderness or skin color changes. Skin: No rash, eruptions or abnormal skin pigmentation LAB/RADIOLOGY: BICUSPID AORTIC VALVE , NO AR , SUPRA STERNAL VIEWS NOT DONE NO EF ASSESMENT : COARCTATION OF AORTA , OPERATED AND LATER STENTED WITH WANG IN LEFT POST CHEST MAC LUNG DEPRESSION PLAN: REPEAT ECHO ID , D/W DR. ROTHMAN TRAMADOL FOR CP Past Patient History - Infectious Disease Hx of Infectious Diseases: None - Past Social History Smoking Status: Light Smoker < 10 Cigarettes Daily - CARDIAC Hx Cardiac Disorders: Yes Other/Comment: h/o acute valve replacement - PULMONARY Hx Respiratory Disorders: Yes Other/Comment: h/o MAC- lung disease - NEUROLOGICAL Hx Neurological Disorder: No - HEENT Hx HEENT Problems: No - RENAL Hx Chronic Kidney Disease: No - ENDOCRINE/METABOLIC Hx Endocrine Disorders: No - HEMATOLOGICAL/ONCOLOGICAL Hx Blood Disorders: No - INTEGUMENTARY Hx Dermatological Problems: No - MUSCULOSKELETAL/RHEUMATOLOGICAL Hx Musculoskeletal Disorders: No - GASTROINTESTINAL Hx Gastrointestinal Disorders: Yes Other/Comment: Aortic valve replacement - GENITOURINARY/GYNECOLOGICAL Hx Genitourinary Disorders: No - PSYCHIATRIC Hx Substance Use: Yes - SURGICAL HISTORY Hx Surgeries: Yes Hx Valve Replacement: Yes (from and at age 18 y/o) - ANESTHESIA Hx Anesthesia: Yes Hx Anesthesia Reactions: No Hx Malignant Hyperthermia: No Has any member of the family had a problem w/ anesthesia?: No Meds Allergies/Adverse Reactions: Allergies Allergy/AdvReac Type Severity Reaction Status Date / Time No Known Allergies Allergy Verified 11/30/16 05:39 - Medications Medications: Current Medications Amlodipine Besylate (Norvasc) 5 mg PO DAILY [facility] Last Admin: 12/05/16 11:42 Dose: 5 mg Chlordiazepoxide (Librium) 25 mg PO Q4H PRN PRN Reason: Alcohol Withdrawal Last Admin: 12/03/16 23:27 Dose: 25 mg Clonidine HCl (Catapres) 0.1 mg PO Q4H PRN PRN Reason: Symptoms of alcohol withdrawl Escitalopram Oxalate (Lexapro) 10 mg PO DAILY [facility] Last Admin: 12/05/16 11:42 Dose: 10 mg Folic Acid (Folic Acid) 1 mg PO DAILY [facility] Last Admin: 12/05/16 11:42 Dose: 1 mg Gabapentin (Neurontin) 100 mg PO TID [facility] Last Admin: 12/05/16 11:42 Dose: 100 mg Heparin Sodium (Porcine) (Heparin) 5,000 units SC Q12 [facility] Last Admin: 12/05/16 11:41 Dose: 5,000 units Hydralazine HCl (Apresoline) 10 mg IVP Q6H PRN PRN Reason: Systolic Blood Pressure Hydroxyzine HCl (Atarax) 50 mg PO Q6H PRN PRN Reason: Anxiety Last Admin: 12/03/16 21:51 Dose: 50 mg Ibuprofen (Motrin Tab) 600 mg PO Q6H PRN PRN Reason: Pain, moderate (4-7) Last Admin: 12/03/16 23:24 Dose: 600 mg Multivitamins (Hexavitamin) 1 tab PO DAILY [facility] Last Admin: 12/05/16 11:41 Dose: 1 tab Naltrexone HCl (Revia) 50 mg PO DAILY [facility] Last Admin: 12/05/16 11:44 Dose: 50 mg Thiamine HCl (Vitamin B1 Tab) 100 mg PO DAILY [facility] Last Admin: 12/05/16 11:42 Dose: 100 mg Trazodone HCl (Desyrel) 100 mg PO HS PRN PRN Reason: Insomnia Last Admin: 12/04/16 22:10 Dose: 100 mg Results - Vital Signs Recent Vital Signs: Last Vital Signs Temp 97.6 F 12/05/16 07:58 Pulse 67 12/05/16 08:17 Resp 20 12/05/16 07:58 BP 121/70 12/05/16 07:58 Pulse Ox 98 12/05/16 07:58 - Labs Result Diagrams: 12/06/16 07:03 12/06/16 07:03 Labs: Laboratory Results - last 24 hr 12/04/16 12/05/16 12/05/16 20:41 01:24 06:07 WBC 6.2 RBC 5.09 Hgb 13.7 Hct 42.1 MCV 82.6 MCH 26.8 L MCHC 32.4 L RDW 13.7 Plt Count 227 MPV 9.5 Neut % (Auto) 49.9 L Lymph % (Auto) 38.3 [place] % (Auto) 8.9 Eos % (Auto) 2.6 Baso % (Auto) 0.3 Neut # 3.1 Lymph # 2.4 [place] # 0.6 Eos # 0.2 Baso # 0.0 Sodium Potassium Chloride Carbon Dioxide Anion Gap BUN Creatinine Est GFR ( Amer) Est GFR (Non-Af Amer) Random Glucose Calcium Phosphorus Magnesium Total Bilirubin AST ALT Alkaline Phosphatase Total Creatine Kinase 66 CK-MB (Mass) 0.26 Troponin I < 0.0120 Troponin I, Quant < 0.0120 Total Protein Albumin Globulin Albumin/Globulin Ratio 12/05/16 06:07 WBC RBC Hgb Hct MCV MCH MCHC RDW Plt Count MPV Neut % (Auto) Lymph % (Auto) [place] % (Auto) Eos % (Auto) Baso % (Auto) Neut # Lymph # [place] # Eos # Baso # Sodium 136 Potassium 4.0 Chloride 99 Carbon Dioxide 29 Anion Gap 13 BUN 14 Creatinine 0.9 Est GFR ( Amer) > 60 Est GFR (Non-Af Amer) > 60 Random Glucose 88 Calcium 8.8 Phosphorus 4.8 H Magnesium 2.1 Total Bilirubin 0.7 AST 27 ALT 30 Alkaline Phosphatase 78 Total Creatine Kinase CK-MB (Mass) Troponin I Troponin I, Quant Total Protein 7.0 Albumin 3.8 Globulin 3.1 Albumin/Globulin Ratio 1.2
--- NOTE | 2016-12-05 13:36 | CARD ---
APPROVED REPORT EXAM: Two-dimensional and M-mode echocardiogram with Doppler and color Doppler. Other Information Quality : GoodRhythm : NSR INDICATION Chest Pain ALCOHOL ABUSE RISK FACTORS Hypertension M-Mode DIMENSIONS RVDd1.92 (2.1-3.2cm)Left Atrium (MM)1.55 (2.5-4.0cm) IVSd0.96 (0.7-1.1cm)Aortic Root2.23 (2.2-3.7cm) LVDd4.46 (4.0-5.6cm)Aortic Cusp Exc.1.72 (1.5-2.0cm) PWd0.99 (0.7-1.1cm)FS (%) 44 % LVDs2.51 (2.0-3.8cm)LVEF (%)75 (>50%) Mitral Valve MV E Wcqisqvp81.1cm/sMV A Dhoxovao78.2cm/sE/A ratio1.3 TDI E/Lateral E'0.0E/Medial E'0.0 Tricuspid Valve TR Peak [id number]/sTR Peak [id number] LEFT VENTRICLE The left ventricle is normal size. There is normal left ventricular wall thickness. The Ejection Fraction is 65-70%. There is normal LV segmental wall motion. The left ventricular diastolic function is normal. RIGHT VENTRICLE The right ventricle is normal size. The right ventricular systolic function is normal. ATRIA The left atrium size is normal. The right atrium size is normal. The interatrial septum is intact with no evidence for an atrial septal defect. AORTIC VALVE The aortic valve is bicuspid. No aortic regurgitation is present. MITRAL VALVE The mitral valve is normal in structure. There is no mitral valve regurgitation noted. TRICUSPID VALVE The tricuspid valve is normal in structure. There is trace tricuspid regurgitation. PULMONIC VALVE The pulmonary valve is normal in structure. GREAT VESSELS aortic root is normal. aascendind aorta & descending aorta is not scanned, The IVC is normal in size and collapses >50% with inspiration. PERICARDIAL EFFUSION There is no pericardial effusion. <Conclusion> The left ventricle is normal size. The Ejection Fraction is 65-70%. The left ventricular diastolic function is normal. The aortic valve is bicuspid. normal doppler. no pericardial effusion.
--- NOTE | 2016-12-05 15:05 | CT ---
PROCEDURE: CT Chest without contrast HISTORY: chest pain, shortness of breath COMPARISON: None. TECHNIQUE: Contiguous axial images were obtained through the chest without intravenous contrast enhancement. Sagittal and coronal reconstructions were performed. Radiation dose (DLP): 180 mGy-cm. This CT exam was performed using one or more of the following dose reduction techniques: Automated exposure control, adjustment of the mA and/or kV according to patient size, and/or use of iterative reconstruction technique. FINDINGS: LUNGS: There is a nodule in the right upper lobe (image number 61) measuring 3 millimeters, as well as 3 millimeter nodule in the right lower lobe (image number [id number]. Additional scattered tiny sub centimeter lung nodules are observed. Minimal peripheral fibrotic changes identified. There is no suspicious parenchymal mass or consolidation.. Visualized airway clear. MEDIASTINUM: There is a stent in the descending thoracic aorta. No mediastinal hematoma or aortic aneurysm is observed.. No aneurysm. Normal sized heart. Main pulmonary artery unremarkable. No vascular congestion. No lymphadenopathy. PLEURA: No pleural fluid. No pneumothorax. BONES: No fracture. No destructive lesion. UPPER ABDOMEN: Grossly unremarkable. OTHER FINDINGS: None. IMPRESSION: Scattered subcentimeter lung nodules likely postinflammatory etiology. Recommend 1 year follow-up. Thoracic aorta stent.
--- NOTE | 2016-12-05 15:27 | PCM.PYCHPN ---
Psychiatric Progress Note - Psychiatric Progress Note Patient seen today, length of contact: 16 min Patient Chief Complaint: I ma feeling better Problems Identified/Issues Discussed: Patient seen and evaluated, chart reviewed and discussed with the nurse. Patient reports improvement in his mood but still reports irritability and agitation. He still reports racing of thoughts and anxiety. However, he denies any feelings of hopelessness and helplessness and denies any auditory or visual hallucinations. He is taking medication and denied any side effects. Supportive therapy and psychoeducation were given. Medication Change: No Medical Record Reviewed: Yes Mental Status Examination - Cognitive Function Orientation: Person, Place, Situation, Time Memory: Intact Attention: WNL Concentration: WNL Association: WN Fund of Knowledge: WNL - Mood Mood: Depressed, Anxious - Affect Affect: Broad - Speech Speech: Appropriate, Soft - Formal Thought Process Formal Thought Process: No Impairment - Suicidal Ideation Suicidal Ideation: No - Homicidal Ideation Homicidal Ideation: No Goal/Treatment Plan - Goal/Treatment Plan Need for Continued Stay: Discharge may exacerbated symptoms Progress Toward Problem(s) and Goals/Treatment Plan: Remeron for depressive sxs naltrexone for alcohol cravings Gabapentin for augmentation As needed meds and vitamins Attend groups and activities GA for abstinence and CBT for relapse prevention Support and psychoeducation Consider and encourage MAT ie Lorel Refer to after care in rehab Sx-based detox Estimated Date of D/C: 12/06/16 - Smoking Cessation Smoking Cessation Initiated: No
--- NOTE | 2016-12-05 17:42 | CP.PCM.PN ---
Addendum entered and electronically signed by Charla Lewis 12/05/16 18:05 : Consult from ID: Dr. Elma London. Original Note: <Charla Lewis - Last Filed: 12/05/16 17:37> Subjective - Date & Time of Evaluation Date of Evaluation: 12/05/16 Time of Evaluation: 17:39 - Subjective Subjective: Medicine Progress Note- Dr. Asencio Service Patient was seen and examined at bedside in no acute distress. Patient reports feeling better. Patient reports still feeling chest pressure and intermittent light headedness. Patient states he has a cough with no sputum. He reports his anxiety and depression have also improved.Patient denies nausea, vomiting, dizziness, abdominal pain, and leg pain. Objective - Vital Signs/Intake and Output Vital Signs (last 24 hours): Temp Pulse Resp BP Pulse Ox 97.6 F 81 20 112/78 98 12/05/16 15:36 12/05/16 17:03 12/05/16 15:36 12/05/16 15:36 12/05/16 15:36 Intake and Output: 12/05/16 12/05/16 06:59 18:59 Intake Total 500 Balance 500 - Medications Medications: Current Medications Amlodipine Besylate (Norvasc) 5 mg PO DAILY [facility] Last Admin: 12/05/16 11:42 Dose: 5 mg Aspirin (Aspirin Chewable) 81 mg PO DAILY [facility] Chlordiazepoxide (Librium) 25 mg PO Q4H PRN PRN Reason: Alcohol Withdrawal Last Admin: 12/03/16 23:27 Dose: 25 mg Clonidine HCl (Catapres) 0.1 mg PO Q4H PRN PRN Reason: Symptoms of alcohol withdrawl Clopidogrel Bisulfate (Plavix) 75 mg PO DAILY [facility] Escitalopram Oxalate (Lexapro) 10 mg PO DAILY [facility] Last Admin: 12/05/16 11:42 Dose: 10 mg Folic Acid (Folic Acid) 1 mg PO DAILY [facility] Last Admin: 12/05/16 11:42 Dose: 1 mg Gabapentin (Neurontin) 100 mg PO TID [facility] Last Admin: 12/05/16 14:00 Dose: Not Given Heparin Sodium (Porcine) (Heparin) 5,000 units SC Q12 [facility] Last Admin: 12/05/16 11:41 Dose: 5,000 units Hydralazine HCl (Apresoline) 10 mg IVP Q6H PRN PRN Reason: Systolic Blood Pressure Hydroxyzine HCl (Atarax) 50 mg PO Q6H PRN PRN Reason: Anxiety Last Admin: 12/03/16 21:51 Dose: 50 mg Ibuprofen (Motrin Tab) 600 mg PO Q6H PRN PRN Reason: Pain, moderate (4-7) Last Admin: 12/03/16 23:24 Dose: 600 mg Multivitamins (Hexavitamin) 1 tab PO DAILY [facility] Last Admin: 12/05/16 11:41 Dose: 1 tab Naltrexone HCl (Revia) 50 mg PO DAILY [facility] Last Admin: 12/05/16 11:44 Dose: 50 mg Thiamine HCl (Vitamin B1 Tab) 100 mg PO DAILY [facility] Last Admin: 12/05/16 11:42 Dose: 100 mg Tramadol HCl (Ultram) 50 mg PO TID [facility] Trazodone HCl (Desyrel) 100 mg PO HS PRN PRN Reason: Insomnia Last Admin: 12/04/16 22:10 Dose: 100 mg - Labs Labs: 12/05/16 06:07 12/05/16 06:07 - Constitutional Appears: No Acute Distress - Head Exam Head Exam: NORMAL INSPECTION, NORMOCEPHALIC - Eye Exam Eye Exam: EOMI, Normal appearance - ENT Exam ENT Exam: Mucous Membranes Moist - Neck Exam Neck Exam: Full ROM, Normal Inspection - Respiratory Exam Respiratory Exam: Clear to Ausculation Bilateral, NORMAL BREATHING PATTERN. absent: Rhonchi, Wheezes - Cardiovascular Exam Cardiovascular Exam: REGULAR RHYTHM, +S1, +S2 - GI/Abdominal Exam GI & Abdominal Exam: Soft, Normal Bowel Sounds. absent: Tenderness Additional comments: tender at injection sites - Extremities Exam Extremities Exam: Full ROM. absent: Calf Tenderness, Pedal Edema, Tenderness - Neurological Exam Neurological Exam: Alert, Awake, Oriented x3 - Psychiatric Exam Psychiatric exam: Normal Affect, Normal Mood - Skin Skin Exam: Dry, Intact, Normal Color, Warm Assessment and Plan (1) Hypertensive emergency Assessment & Plan: Monitor BP Norvasc 5mg PO daily Clonidine 0.1mg PO Q4 Status: Acute (2) Chest pressure Assessment & Plan: EKG- nsm 102bpm CMP, CBC ordered STANLEY x 3 negative Chest xray: no infiltrate or effusion; surgical clips at left lung apex; suggestion of aortic stent in place. Chest CT- scattered subcentimeter lung nodules, likely post-inflammatory etiology. Recommend 1 year follow up; Thoracic aortic stent; ECHO- EF 65-70%; aortic valve bicuspid; no pleural effusion. Cardiology consult- Dr. Espinal, bernardo appreciated Status: Acute (3) Alcohol abuse Assessment & Plan: Management as per Psychiatry Librium taper 25mg PO Q4 Gabapentin 100mg PO TID Naltrexone 50mg PO daily Folic Acid 1mg PO daily Thiamine 100mg PO Daily Multivitamins Status: Acute (4) History of aortic valve replacement Assessment & Plan: History of two stents. Chest xray: no infiltrate or effusion; surgical clips at left lung apex; suggestion of aortic stent in place. 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 F/U HIV 1/2 Consult ID: Dr. Lim, bernardo appreciated Status: Acute (6) Depression with anxiety Assessment & Plan: Management as per Psychiatry Lexapro 10mg PO Daily Hydroxyzine 1 tab PO daily Status: Acute (9) Prophylactic measure Assessment & Plan: SCDs Pepcid 20mg BID Regular diet Status: Acute <Mahi Asencio V - Last Filed: 12/19/16 16:26> Objective - Vital Signs/Intake and Output Vital Signs (last 24 hours): Temp Pulse Resp BP Pulse Ox 97.9 F 144 H 20 186/123 H 99 12/07/16 20:19 12/07/16 20:19 12/07/16 20:19 12/07/16 20:19 12/07/16 16:00 - Labs Labs: 12/07/16 07:06 12/07/16 07:06 Attending/Attestation - Attestation I have personally seen and examined this patient.: Yes I have fully participated in the care of the patient.: Yes I have reviewed all pertinent clinical information, including history, physical exam and plan: Yes Notes (Text): This is late computer entry for 12/05/16. Patient seen, examined, and case discussed with day-time internal revenue agent. Patient completed echocardiogram and CT Chest. Discussed with cardiology, patient started on Aspirin and Plavix given history of aortic valve replacement. 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 Patient also reports he has a history of MAC, wherein he was told he needs one year of antibiotics and has only completed 6 months worth. Patient is admitted for alcoholism and depression with suicidal ideation. Assessment/Plan 1) Hypertensive urgency-->controlled with Norvac and PRN clonidine 2) Chest Pressure--> completed echocardiogram, CT Chest, and cardiology on board given patient's history of coaractation and congenital heart disease 3) History of coarctation of aorta; aortic valve replacement-->patient started on Aspirin and Plavix 4) History of MAC-->patient reports he has completed 6 months of antibiotics and was told he will need 1 year therapy, infectious disease (Dr. London) consulted for further recommendations 5) History of Alcohol Abuse-->management per psychiatry 6) Depression-->management per psychiatry
--- NOTE | 2016-12-05 18:04 | CP.PCM.CON ---
History of Present Illness - History of Present Illness History of Present Illness: INFECTIOUS DISEASE CONSULT; HPI; 31-year-old male with past medical history of congenital heart disease, and MAC lung disease, depression, alcohol and marijuana abuse who was recently transferred from [facility] to medical floor after rapid response when patient started feeling chest pressure, lightheadedness and feeling that his head is going to explode. Patient was found to have elevated blood pressure 190/[address] head no intracranial hemorrhage or acute infarct. Patient states he was diagnosed with congenital heart disease and received aortic valve replacement at and a stent at 18 years old. He was diagnosed with coarctation of aorta and has a stents in the descending thoracic aorta. He was diagnosed with MAC in February 2016 and he was placed on 3 drug regimen including clarithromycin, rifampin and ethambutol. Patient states he stopped his medication about a month ago as he ran short of them . Since then he has started drinking heavily because of his depression. Patient still admits to having productive cough but denies any hemoptysis or hematemesis. Patient was seen by web marketing intern for further evaluation of his chest pain. Infectious disease consultation requested by PMD , DR JACKSON for Mycobacterium avium complex lung disease. Patient denies history of HIV or any other STDs in the past. PMd: none PMHx: MAC disgnosed 02/2016; congential heart disease- aortic valve replacement at ; stent at 18 year old PSx: aortic valve replacement at ; stent at 18 year old FamHx: Father- stroke; "several family members have diabetes" Medications: none Allergies: NKDA Review of Systems - Constitutional Constitutional: Headache. absent: Fever - EENT Eyes: absent: Change in Vision, Floaters, Photophobia, Spots in Vision Nose/Mouth/Throat: absent: Post Nasal Drip, Mouth Lesions, Neck Pain - Cardiovascular Cardiovascular: Chest Pain - Respiratory Respiratory: Cough - Gastrointestinal Gastrointestinal: absent: Abdominal Pain, Diarrhea, Nausea, Vomiting - Genitourinary Genitourinary: absent: Hematuria - Psychiatric Psychiatric: Anxiety, Depression - Hematologic/Lymphatic Hematologic: As Per HPI. absent: Lymphadenopathy Past Patient History - Infectious Disease Hx of Infectious Diseases: None - Past Social History Smoking Status: Light Smoker < 10 Cigarettes Daily - CARDIAC Hx Cardiac Disorders: Yes Other/Comment: h/o acute valve replacement - PULMONARY Hx Respiratory Disorders: Yes Other/Comment: h/o MAC- lung disease - NEUROLOGICAL Hx Neurological Disorder: No - HEENT Hx HEENT Problems: No - RENAL Hx Chronic Kidney Disease: No - ENDOCRINE/METABOLIC Hx Endocrine Disorders: No - HEMATOLOGICAL/ONCOLOGICAL Hx Blood Disorders: No - INTEGUMENTARY Hx Dermatological Problems: No - MUSCULOSKELETAL/RHEUMATOLOGICAL Hx Musculoskeletal Disorders: No - GASTROINTESTINAL Hx Gastrointestinal Disorders: Yes Other/Comment: Aortic valve replacement - GENITOURINARY/GYNECOLOGICAL Hx Genitourinary Disorders: No - PSYCHIATRIC Hx Substance Use: Yes - SURGICAL HISTORY Hx Surgeries: Yes Hx Valve Replacement: Yes (from and at age 18 y/o) - ANESTHESIA Hx Anesthesia: Yes Hx Anesthesia Reactions: No Hx Malignant Hyperthermia: No Has any member of the family had a problem w/ anesthesia?: No Meds Allergies/Adverse Reactions: Allergies Allergy/AdvReac Type Severity Reaction Status Date / Time No Known Allergies Allergy Verified 11/30/16 05:39 - Medications Medications: Current Medications Amlodipine Besylate (Norvasc) 5 mg PO DAILY [facility] Last Admin: 12/05/16 11:42 Dose: 5 mg Chlordiazepoxide (Librium) 25 mg PO Q4H PRN PRN Reason: Alcohol Withdrawal Last Admin: 12/03/16 23:27 Dose: 25 mg Clonidine HCl (Catapres) 0.1 mg PO Q4H PRN PRN Reason: Symptoms of alcohol withdrawl Escitalopram Oxalate (Lexapro) 10 mg PO DAILY [facility] Last Admin: 12/05/16 11:42 Dose: 10 mg Folic Acid (Folic Acid) 1 mg PO DAILY [facility] Last Admin: 12/05/16 11:42 Dose: 1 mg Gabapentin (Neurontin) 100 mg PO TID [facility] Last Admin: 12/05/16 17:45 Dose: 100 mg Heparin Sodium (Porcine) (Heparin) 5,000 units SC Q12 [facility] Last Admin: 12/05/16 11:41 Dose: 5,000 units Hydralazine HCl (Apresoline) 10 mg IVP Q6H PRN PRN Reason: Systolic Blood Pressure Hydroxyzine HCl (Atarax) 50 mg PO Q6H PRN PRN Reason: Anxiety Last Admin: 12/03/16 21:51 Dose: 50 mg Ibuprofen (Motrin Tab) 600 mg PO Q6H PRN PRN Reason: Pain, moderate (4-7) Last Admin: 12/03/16 23:24 Dose: 600 mg Multivitamins (Hexavitamin) 1 tab PO DAILY [facility] Last Admin: 12/05/16 11:41 Dose: 1 tab Naltrexone HCl (Revia) 50 mg PO DAILY [facility] Last Admin: 12/05/16 11:44 Dose: 50 mg Thiamine HCl (Vitamin B1 Tab) 100 mg PO DAILY [facility] Last Admin: 12/05/16 11:42 Dose: 100 mg Tramadol HCl (Ultram) 50 mg PO TID [facility] Last Admin: 12/05/16 17:44 Dose: 50 mg Trazodone HCl (Desyrel) 100 mg PO HS PRN PRN Reason: Insomnia Last Admin: 12/04/16 22:10 Dose: 100 mg Physical Exam - Constitutional Appears: No Acute Distress - Eye Exam Eye Exam: EOMI, PERRL. absent: Scleral icterus - ENT Exam ENT Exam: Normal Oropharynx - Neck Exam Neck exam: Positive for: Normal Inspection. Negative for: Meningismus - Respiratory Exam Respiratory Exam: Rhonchi - Cardiovascular Exam Cardiovascular Exam: REGULAR RHYTHM, +S1, +S2, Systolic Murmur - GI/Abdominal Exam GI & Abdominal Exam: Normal Bowel Sounds, Soft. absent: Organomegaly, Tenderness - Extremities Exam Extremities exam: Positive for: normal capillary refill, pedal pulses present. Negative for: calf tenderness, pedal edema - Neurological Exam Neurological exam: Alert, CN II-XII Intact, Oriented x3, Reflexes Normal - Psychiatric Exam Psychiatric exam: Normal Mood - Skin Skin Exam: Normal Color, Warm Results - Vital Signs Recent Vital Signs: Last Vital Signs Temp 97.6 F 12/05/16 15:36 Pulse 81 12/05/16 17:03 Resp 20 12/05/16 15:36 BP 112/78 12/05/16 15:36 Pulse Ox 98 12/05/16 15:36 - Labs Result Diagrams: 12/05/16 06:07 12/05/16 06:07 Labs: Laboratory Results - last 24 hr 12/04/16 12/05/16 12/05/16 20:41 01:24 06:07 WBC 6.2 RBC 5.09 Hgb 13.7 Hct 42.1 MCV 82.6 MCH 26.8 L MCHC 32.4 L RDW 13.7 Plt Count 227 MPV 9.5 Neut % (Auto) 49.9 L Lymph % (Auto) 38.3 Bryan % (Auto) 8.9 Eos % (Auto) 2.6 Baso % (Auto) 0.3 Neut # 3.1 Lymph # 2.4 Bryan # 0.6 Eos # 0.2 Baso # 0.0 Sodium Potassium Chloride Carbon Dioxide Anion Gap BUN Creatinine Est GFR ( Amer) Est GFR (Non-Af Amer) Random Glucose Calcium Phosphorus Magnesium Total Bilirubin AST ALT Alkaline Phosphatase Total Creatine Kinase 66 CK-MB (Mass) 0.26 Troponin I < 0.0120 Troponin I, Quant < 0.0120 Total Protein Albumin Globulin Albumin/Globulin Ratio 12/05/16 06:07 WBC RBC Hgb Hct MCV MCH MCHC RDW Plt Count MPV Neut % (Auto) Lymph % (Auto) Bryan % (Auto) Eos % (Auto) Baso % (Auto) Neut # Lymph # Bryan # Eos # Baso # Sodium 136 Potassium 4.0 Chloride 99 Carbon Dioxide 29 Anion Gap 13 BUN 14 Creatinine 0.9 Est GFR ( Amer) > 60 Est GFR (Non-Af Amer) > 60 Random Glucose 88 Calcium 8.8 Phosphorus 4.8 H Magnesium 2.1 Total Bilirubin 0.7 AST 27 ALT 30 Alkaline Phosphatase 78 Total Creatine Kinase CK-MB (Mass) Troponin I Troponin I, Quant Total Protein 7.0 Albumin 3.8 Globulin 3.1 Albumin/Globulin Ratio 1.2 - Imaging and Cardiology CT scan - chest Status: Report reviewed by me (CT chest without contrast 12/04/16 ; scattered subcentimeter lung nodes?post inflammatory. Stent in the descending thoracic aorta, no mediastinal hematoma or aortic aneurysm, no vascular congestion and no lymphadenopathy.) Assessment & Plan (1) Pulmonary Mycobacterium avium complex (MAC) infection Status: Acute (2) Chest pressure Status: Acute (3) Hypertensive emergency Status: Acute (4) History of aortic valve replacement Status: Acute (5) Coarctation of aorta, congenital Status: Acute (6) Depression with anxiety Status: Acute - Assessment and Plan (Free Text) Plan: PLAN; ESR,CRP. SPUTUM FOR AFB X 3 DAYS ( MORNING SPECIMEN ) DAILY WILL REINITIATE MAC LUNG THERAPY WITH MACROLIDE + ETHAMBUTOL+ AND RIFAMPIN. PATIENT WAS TAKING CLARITHROMYCIN 500 MG PO BID DAILY ETHAMBUTOL 400 MG BY MOUTH 3 TIMES A DAY DAILY. RIFAMPIN 300 MG BY MOUTH TWICE A DAY DAILY. WATCH LFTS WEEKLY CHECK VISUAL EQUITY AND COLOR DISCRIMINATION PATIENT RECEIVING ETHAMBUTOL. AUDIOGRAM OUTPATIENT PATIENT RECEIVING MACROLIDE. PATIENT WILL NEED 12 MONTHS THERAPY FOR MYCOBACTERIUM AVIUM COMPLEX LUNG. SMOKING CESSATION DISCUSSED WITH PATIENT. STOP ALCOHOL USE,PATIENT EDUCATED. CASE DISCUSSED WITH STAFF, DR JACKSON /AND MOTHER OF THE PATIENT BY TELEPHONE. WILL FOLLOW THE PATIENT ALONG WITH YOU WHILE IN HOSPITAL.
[2016-12-06 07:26] LABS: BASO # 0.1 K/uL (0.0-0.2); BASO % 0.7 % (0.0-2.0); EOS # 0.2 K/uL (0.0-0.7); EOS % 2.5 % (0.0-4.0); HEMOGLOBIN 15.1 g/dL (12.0-18.0); LYMPH # 2.1 K/uL (1.0-4.3); MEAN CELL VOLUME 82.4 fL (80.0-94.0); MEAN CORPUSCULAR HEMOGLOBIN 27.3 pg (27.0-31.0); MEAN CORPUSCULAR HGB CONC 33.1 g/dL (33.0-37.0); MEAN PLATELET VOLUME 9.8 fL (7.2-11.7); MONO # 0.7 K/uL (0.0-0.8); MONO % 9.2 % (0.0-10.0); NEUT # 4.3 K/uL (1.8-7.0); NEUT % 58.6 % (50.0-75.0); NRBC % 0.1 % (0.0-2.0); RBC 5.55 Mil/uL (4.40-5.90); RED CELL DISTRIBUTION WIDTH 13.8 % (11.5-14.5); WHITE BLOOD COUNT 7.4 K/uL (4.8-10.8)
--- NOTE | 2016-12-06 07:42 | CP.PCM.PN ---
<Charla Lewis - Last Filed: 12/06/16 18:49> Subjective - Date & Time of Evaluation Date of Evaluation: 12/06/16 Time of Evaluation: 07:39 - Subjective Subjective: Medicine Progress Note- Dr. Asencio Service Patient was seen and examined at bedside in no acute distress. Patient reports feeling better today with less chest pressure and less short of breath. Patient states he is still constipated and has not had a bowel movement in 3 days. He states last night his head was throbbing and he has had intermittent headache, but currently does not have a headache. Patient denies chest pain, palpitations , nausea, vomiting, diarrhea, dizziness, abdominal pain (except at injection sites-sore), and leg pain. Patient had an episode of syncope, hypoglycemia, tachycardia and elevated blood pressure. Patient responded to sternal rub. Patient reports having palpitations and chest pain. EKG and ROMIs were ordered. Currently, patient feels better, but reports having chest pain in the location of the sternal rub. Objective - Vital Signs/Intake and Output Vital Signs (last 24 hours): Temp Pulse Resp BP Pulse Ox 97.7 F 89 20 93/65 L 97 12/05/16 23:10 12/05/16 23:10 12/05/16 23:10 12/05/16 23:10 12/05/16 23:10 - Medications Medications: Current Medications Amlodipine Besylate (Norvasc) 5 mg PO DAILY [facility] Last Admin: 12/05/16 11:42 Dose: 5 mg Chlordiazepoxide (Librium) 25 mg PO Q4H PRN PRN Reason: Alcohol Withdrawal Last Admin: 12/03/16 23:27 Dose: 25 mg Clarithromycin (Biaxin Filmtab) 500 mg PO Q12H [facility] Last Admin: 12/05/16 20:01 Dose: 500 mg Clonidine HCl (Catapres) 0.1 mg PO Q4H PRN PRN Reason: Symptoms of alcohol withdrawl Escitalopram Oxalate (Lexapro) 10 mg PO DAILY [facility] Last Admin: 12/05/16 11:42 Dose: 10 mg Ethambutol HCl (Myambutol) 400 mg PO TID [facility] Folic Acid (Folic Acid) 1 mg PO DAILY [facility] Last Admin: 12/05/16 11:42 Dose: 1 mg Gabapentin (Neurontin) 100 mg PO TID [facility] Last Admin: 12/05/16 17:45 Dose: 100 mg Heparin Sodium (Porcine) (Heparin) 5,000 units SC Q12 [facility] Last Admin: 12/05/16 21:32 Dose: 5,000 units Hydralazine HCl (Apresoline) 10 mg IVP Q6H PRN PRN Reason: Systolic Blood Pressure Hydroxyzine HCl (Atarax) 50 mg PO Q6H PRN PRN Reason: Anxiety Last Admin: 12/03/16 21:51 Dose: 50 mg Ibuprofen (Motrin Tab) 600 mg PO Q6H PRN PRN Reason: Pain, moderate (4-7) Last Admin: 12/03/16 23:24 Dose: 600 mg Multivitamins (Hexavitamin) 1 tab PO DAILY [facility] Last Admin: 12/05/16 11:41 Dose: 1 tab Naltrexone HCl (Revia) 50 mg PO DAILY [facility] Last Admin: 12/05/16 11:44 Dose: 50 mg Rifampin (Rifampin) 300 mg PO BID [facility] Thiamine HCl (Vitamin B1 Tab) 100 mg PO DAILY [facility] Last Admin: 12/05/16 11:42 Dose: 100 mg Tramadol HCl (Ultram) 50 mg PO TID [facility] Last Admin: 12/05/16 17:44 Dose: 50 mg Trazodone HCl (Desyrel) 100 mg PO HS PRN PRN Reason: Insomnia Last Admin: 12/05/16 21:29 Dose: 100 mg - Labs Labs: 12/06/16 07:03 12/05/16 06:07 - Constitutional Appears: No Acute Distress - Head Exam Head Exam: NORMAL INSPECTION, NORMOCEPHALIC - Eye Exam Eye Exam: EOMI, Normal appearance - ENT Exam ENT Exam: Mucous Membranes Moist - Neck Exam Neck Exam: Full ROM, Normal Inspection - Respiratory Exam Respiratory Exam: Clear to Ausculation Bilateral, NORMAL BREATHING PATTERN. absent: Rhonchi, Wheezes - Cardiovascular Exam Cardiovascular Exam: REGULAR RHYTHM, +S1, +S2 - GI/Abdominal Exam GI & Abdominal Exam: Soft, Tenderness (at injection sites), Normal Bowel Sounds - Extremities Exam Extremities Exam: Full ROM, Normal Inspection. absent: Calf Tenderness, Pedal Edema - Neurological Exam Neurological Exam: Alert, Awake, Oriented x3 - Psychiatric Exam Psychiatric exam: Normal Affect, Normal Mood - Skin Skin Exam: Dry, Intact, Normal Color, Warm Assessment and Plan (1) Hypertensive emergency Assessment & Plan: Monitor BP Norvasc 5mg PO daily Clonidine 0.1mg PO Q4 Cardiology consult- Dr. Espinal-- help appreciated As per Dr. Espinal, started Lopressor 25mg daily 12/06/16: Patient's BP elevated to 156/92, HR elevated to 111bpm. EKG ordered 12/06/16: sinus tachycardia at 110bpm STANLEY x 1- negative EKGs and ROMIx2 pending Status: Acute (2) Chest pressure Assessment & Plan: EKG- nsm 102bpm; repeat EKG 12/06/16)- sinus tachycardia at 110bpm CMP- Na140, K+ 3.8, Cl 102, CO2 26, BUN 12, Creatinine 1.0, Glucose 90 CBC- WBC 7.4, Hgb 15.1, Hct 45.7, Platelets 225 STANLEY x 3 negative ( 12/05/16) STANLEY x 1 on 12/06/16- negative STANLEY x 2 on 12/06/16- pending Chest xray: no infiltrate or effusion; surgical clips at left lung apex; suggestion of aortic stent in place. Chest CT- scattered subcentimeter lung nodules, likely post-inflammatory etiology. Recommend 1 year follow up; Thoracic aortic stent; ECHO- EF 65-70%; aortic valve bicuspid; no pleural effusion. Cardiology consult- Dr. Espinal, help appreciated Status: Acute (3) Alcohol abuse Assessment & Plan: Management as per Psychiatry Librium 25mg PO once 12/06/16 As per psychiatry, Librium 25mg PO Q4H prn Gabapentin 300mg PO TID Naltrexone 50mg PO daily Folic Acid 1mg PO daily Thiamine 100mg PO Daily Multivitamins Status: Acute (4) History of aortic valve replacement Assessment & Plan: History of two stents. Chest xray: no infiltrate or effusion; surgical clips at left lung apex; suggestion of aortic stent in place. Started Aspirin 81mg PO daily Started Plavix 75mg PO daily Cardiology consult- Dr. 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 HIV 1/2- negative Consult ID: Dr. Lim, help appreciated AFB Sputum culture- ordered Started Clarithromycin 500mg PO Q12, Ethambutol 400mg PO TID, Rifampin 300mg PO BID Status: Acute (6) Depression with anxiety Assessment & Plan: Management as per Psychiatry Lexapro 10mg PO Daily-- Patient is refusing antidepressant medication 12/06/16 Hydroxyzine 1 tab PO daily Status: Acute (7) Hypokalemia Assessment & Plan: On 12/06/16, K+ 2.9 Replaced with Kdur 40mEq PO x 2 Neutraphos 1 packet Q24 Status: Acute (8) Hypoglycemia Assessment & Plan: Glucose- 59 (during tachycardic episode) Accuchecks QACHS NS @100mls/hr Status: Acute (9) Prophylactic measure Assessment & Plan: SCDs Pepcid 20mg BID Regular diet Status: Acute <Mahi Asencio V - Last Filed: 12/19/16 16:39> Objective - Vital Signs/Intake and Output Vital Signs (last 24 hours): Temp Pulse Resp BP Pulse Ox 97.9 F 144 H 20 186/123 H 99 12/07/16 20:19 12/07/16 20:19 12/07/16 20:19 12/07/16 20:19 12/07/16 16:00 - Labs Labs: 12/07/16 07:06 12/07/16 07:06 Attending/Attestation - Attestation I have personally seen and examined this patient.: Yes I have fully participated in the care of the patient.: Yes I have reviewed all pertinent clinical information, including history, physical exam and plan: Yes Notes (Text): This is late computer entry for 12/06/16. Patient seen, examined, and case discussed with day-time record label intern. In the afternoon, patient had noted tachycardia, syncopal event, arousable to sternal rub, and hypoglycemia which correct with amp D50, and started on IV fluids. Patient reports he is very anxious and explained to the patient in light of hypoglycemia, this can make him feel like this. Patient at bedside has [employer] and bottle soda but has not eaten those items yet. Patient ordered for repeat EKG and STANLEY. STANLEY negative. EKG showing sinus tachycardia. Reviewed EMR, patient has not received Librium since transferred out from [facility]. Patient given Ativan 2mg IV X1 for alcohol withdrawal. Discussed with patient's grandmother upon arrival. patient re-evaluated by the record label intern in the afternoon. patient remains stable. Assessment/Plan 1) Hypertensive urgency-->elevated today; Norvasc and PRN clonidine; per cardiology started on Lopressor today 2) Chest Pressure--> completed echocardiogram, CT Chest, and cardiology on board given patient's history of coaractation and congenital heart disease; patient order for STANLEY and EKG in light of episode this afternoon; hypoglycemic episodes improved with OJ, and started on IV fluids 3) History of coarctation of aorta; aortic valve replacement-->patient started on Aspirin and Plavix 4) History of MAC-->patient reports he has completed 6 months of antibiotics and was told he will need 1 year therapy, infectious disease (Dr. London); Patient started on Started Clarithromycin 500mg PO Q12, Ethambutol 400mg PO TID , Rifampin 300mg PO BID; no noted QT changes on repeat EKG; discussed with Dr. London 5) History of Alcohol Abuse-->management per psychiatry 6) Depression-->management per psychiatry; patient refusing medication.
[2016-12-06 07:51] LABS: ALBUMIN 4.2 g/dL (3.5-5.0)
[2016-12-06 07:54] LABS: ALB/GLOB RATIO 1.2 (1.0-2.1); ALT/SGPT 31 U/L (21-72); AST/SGOT 32 U/L (17-59); BLOOD UREA NITROGEN 12 mg/dL (9-20); GFR AFRICAN-AMERICAN > 60; GFR NON-AFRICAN AMERICAN > 60
[2016-12-06 07:55] LABS: CALCIUM 9.5 mg/dl (8.6-10.4); MAGNESIUM 2.2 mg/dL (1.6-2.3)
[2016-12-06] MEDS: Multiple Vitamins Tab PO SCH (10:44)
[2016-12-06] MEDS: Sodium Chloride 0.9% 1,000 ML IV SCH ×2 (13:20→23:08)
[2016-12-06] MEDS ORDERED: Dextrose 50% SYRINGE Inj (50 ml) IV STA (13:23)
[2016-12-06] MEDS ORDERED: Dextrose 5%/0.45% NS 1,000 ML IV SCH (13:30)
--- NOTE | 2016-12-06 14:16 | CP.PCM.PN ---
<Joe Espinal N - Last Filed: 12/06/16 13:52> Subjective - Date & Time of Evaluation Date of Evaluation: 12/06/16 Time of Evaluation: 13:52 - Subjective Subjective: CHIEF COMPLAINTS TODAY : CP LESS ROS. HEENT : N. Resp : No cough, wheezing ,pleuritic CP ,or hemoptysis Cardio : No anginal CP, PND, orthopnea, palpitation GI : No abd.pain, n/v ,diarrhea or GI bleeding . 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 Musculoskel : No joint swelling , Derm : No rash Psych : Normal affect. Ext : No swelling ,calf pain PE. Pt. is alert awake in no distress. V.S As noted in the chart Head ,ear nose,throat and eyes : Normal. Neck : Supple with normal carotids. Lungs: Clear air entry. Heart : S1 & S2 normal WANG GRADE 2/6 IN LEFT CLAVICULAR AREA Abd : Soft non tender with normal bowel sounds. Neuro : Moves all ext. with no localized deficit. Ext : No edema with intact pulses.Non tender calves Derm : No rashes or decubitus ulcer. LABS/RADIOLOGY: REPEAT ECHO , NO EVIDENCE OF RECURRENCE OFOBSTRUCTION AT ISTHUMUS ASSESSMENT/PLAN : RESPONDING WITH TRAMADOL PT HAS BICUSPID AOV. 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 SYMPTOMS NEED TO CHECK FOR FELIX ANEURYSM Objective - Vital Signs/Intake and Output Vital Signs (last 24 hours): Temp Pulse Resp BP Pulse Ox 97.6 F 99 H 20 156/92 H 98 12/06/16 08:15 12/06/16 10:42 12/06/16 08:15 12/06/16 10:42 12/06/16 08:15 - Medications Medications: Current Medications Amlodipine Besylate (Norvasc) 5 mg PO DAILY [facility] Last Admin: 12/06/16 10:44 Dose: 5 mg Aspirin (Aspirin Chewable) 81 mg PO DAILY [facility] Last Admin: 12/06/16 10:43 Dose: 81 mg Chlordiazepoxide (Librium) 25 mg PO Q4H PRN PRN Reason: Alcohol Withdrawal Clarithromycin (Biaxin Filmtab) 500 mg PO Q12H [facility] Last Admin: 12/06/16 10:43 Dose: 500 mg Clonidine HCl (Catapres) 0.1 mg PO Q4H PRN PRN Reason: Symptoms of alcohol withdrawl Clopidogrel Bisulfate (Plavix) 75 mg PO DAILY [facility] Last Admin: 12/06/16 10:43 Dose: 75 mg Escitalopram Oxalate (Lexapro) 10 mg PO DAILY [facility] Last Admin: 12/06/16 10:44 Dose: 10 mg Ethambutol HCl (Myambutol) 400 mg PO TID [facility] Last Admin: 12/06/16 10:45 Dose: 400 mg Folic Acid (Folic Acid) 1 mg PO DAILY [facility] Last Admin: 12/06/16 10:45 Dose: 1 mg Gabapentin (Neurontin) 300 mg PO TID [facility] Heparin Sodium (Porcine) (Heparin) 5,000 units SC Q12 [facility] Last Admin: 12/06/16 10:45 Dose: 5,000 units Hydralazine HCl (Apresoline) 10 mg IVP Q6H PRN PRN Reason: Systolic Blood Pressure Hydroxyzine HCl (Atarax) 50 mg PO Q6H PRN PRN Reason: Anxiety Last Admin: 12/03/16 21:51 Dose: 50 mg Sodium Chloride (Sodium Chloride 0.9%) 1,000 mls @ 100 mls/hr IV .Q10H [facility] Ibuprofen (Motrin Tab) 600 mg PO Q6H PRN PRN Reason: Pain, moderate (4-7) Last Admin: 12/03/16 23:24 Dose: 600 mg Multivitamins (Hexavitamin) 1 tab PO DAILY [facility] Last Admin: 12/06/16 10:44 Dose: 1 tab Naltrexone HCl (Revia) 50 mg PO DAILY [facility] Last Admin: 12/06/16 11:42 Dose: 50 mg Rifampin (Rifampin) 300 mg PO BID [facility] Last Admin: 12/06/16 11:21 Dose: 300 mg Thiamine HCl (Vitamin B1 Tab) 100 mg PO DAILY [facility] Last Admin: 12/06/16 10:45 Dose: 100 mg Tramadol HCl (Ultram) 50 mg PO TID [facility] Last Admin: 12/06/16 10:44 Dose: 50 mg Trazodone HCl (Desyrel) 100 mg PO HS PRN PRN Reason: Insomnia Last Admin: 12/05/16 21:29 Dose: 100 mg - Labs Labs: 12/06/16 07:03 12/06/16 07:03 <Vanessa London - Last Filed: 12/07/16 00:06> Objective - Vital Signs/Intake and Output Vital Signs (last 24 hours): Temp Pulse Resp BP Pulse Ox 97.9 F 109 H 20 136/76 98 12/06/16 16:17 12/06/16 18:00 12/06/16 16:17 12/06/16 16:17 12/06/16 16:17 Intake and Output: 12/06/16 12/07/16 18:59 06:59 Intake Total 820 780 Balance 820 780 - Medications Medications: Current Medications Amlodipine Besylate (Norvasc) 5 mg PO DAILY [facility] Last Admin: 12/06/16 10:44 Dose: 5 mg Aspirin (Aspirin Chewable) 81 mg PO DAILY [facility] Last Admin: 12/06/16 10:43 Dose: 81 mg Chlordiazepoxide (Librium) 25 mg PO Q4H PRN PRN Reason: Alcohol Withdrawal Last Admin: 12/06/16 17:49 Dose: 25 mg Clarithromycin (Biaxin Filmtab) 500 mg PO Q12H [facility] Last Admin: 12/06/16 18:51 Dose: 500 mg Clonidine HCl (Catapres) 0.1 mg PO Q4H PRN PRN Reason: Symptoms of alcohol withdrawl Clopidogrel Bisulfate (Plavix) 75 mg PO DAILY [facility] Last Admin: 12/06/16 10:43 Dose: 75 mg Escitalopram Oxalate (Lexapro) 10 mg PO DAILY [facility] Last Admin: 12/06/16 10:44 Dose: 10 mg Ethambutol HCl (Myambutol) 400 mg PO TID [facility] Last Admin: 12/06/16 17:43 Dose: 400 mg Folic Acid (Folic Acid) 1 mg PO DAILY [facility] Last Admin: 12/06/16 10:45 Dose: 1 mg Gabapentin (Neurontin) 300 mg PO TID [facility] Last Admin: 12/06/16 17:42 Dose: 300 mg Heparin Sodium (Porcine) (Heparin) 5,000 units SC Q12 [facility] Last Admin: 12/06/16 21:58 Dose: 5,000 units Hydralazine HCl (Apresoline) 10 mg IVP Q6H PRN PRN Reason: Systolic Blood Pressure Hydroxyzine HCl (Atarax) 50 mg PO Q6H PRN PRN Reason: Anxiety Last Admin: 12/06/16 21:58 Dose: 50 mg Sodium Chloride (Sodium Chloride 0.9%) 1,000 mls @ 100 mls/hr IV .Q10H [facility] Last Admin: 12/06/16 23:08 Dose: 100 mls/hr Ibuprofen (Motrin Tab) 600 mg PO Q6H PRN PRN Reason: Pain, moderate (4-7) Last Admin: 12/06/16 17:09 Dose: 600 mg Metoprolol Tartrate (Lopressor) 25 mg PO DAILY [facility] Multivitamins (Hexavitamin) 1 tab PO DAILY [facility] Last Admin: 12/06/16 10:44 Dose: 1 tab Naltrexone HCl (Revia) 50 mg PO DAILY [facility] Last Admin: 12/06/16 11:42 Dose: 50 mg Potassium Phos/Sodium Phos (Neutra-Phos) 1 pkt PO ONCE ONE Stop: 12/07/16 15:01 Rifampin (Rifampin) 300 mg PO BID [facility] Last Admin: 12/06/16 19:45 Dose: 300 mg Thiamine HCl (Vitamin B1 Tab) 100 mg PO DAILY [facility] Last Admin: 12/06/16 10:45 Dose: 100 mg Tramadol HCl (Ultram) 50 mg PO TID [facility] Last Admin: 12/06/16 17:42 Dose: 50 mg Trazodone HCl (Desyrel) 100 mg PO HS PRN PRN Reason: Insomnia Last Admin: 12/06/16 21:58 Dose: 100 mg - Labs Labs: 12/06/16 14:21 12/06/16 14:21 Assessment and Plan (1) Pulmonary Mycobacterium avium complex (MAC) infection Status: Acute (2) Chest pressure Status: Acute (3) Hypertensive emergency Status: Acute (4) History of aortic valve replacement Status: Acute (5) Coarctation of aorta, congenital Status: Acute (6) Depression with anxiety Status: Acute
[2016-12-06 14:35] LABS: BASO % 0.5 % (0.0-2.0); EOS # 0.1 K/uL (0.0-0.7); EOS % 1.2 % (0.0-4.0); HEMOGLOBIN 14.2 g/dL (12.0-18.0); LYMPH # 2.5 K/uL (1.0-4.3); LYMPH % 31.6 % (20.0-40.0); MEAN CELL VOLUME 82.7 fL (80.0-94.0); MEAN CORPUSCULAR HEMOGLOBIN 26.5 pg (27.0-31.0); MEAN CORPUSCULAR HGB CONC 32.1 g/dL (33.0-37.0); MEAN PLATELET VOLUME 10.4 fL (7.2-11.7); MONO # 1.1 K/uL (0.0-0.8); MONO % 13.6 % (0.0-10.0); NEUT # 4.3 K/uL (1.8-7.0); NEUT % 53.1 % (50.0-75.0); NRBC % 0.2 % (0.0-2.0); RBC 5.36 Mil/uL (4.40-5.90); RED CELL DISTRIBUTION WIDTH 13.3 % (11.5-14.5); WHITE BLOOD COUNT 8.1 K/uL (4.8-10.8)
[2016-12-06 14:47] LABS: GFR AFRICAN-AMERICAN > 60; GFR NON-AFRICAN AMERICAN > 60
[2016-12-06 14:48] LABS: ALB/GLOB RATIO 1.2 (1.0-2.1); ALT/SGPT 28 U/L (21-72); AST/SGOT 34 U/L (17-59); BLOOD UREA NITROGEN 9 mg/dL (9-20)
[2016-12-06 15:01] LABS: CK-MB < 0.22 ng/mL (0.0-3.38)
[2016-12-06 15:27] LABS: CALCIUM 8.6 mg/dl (8.6-10.4)
[2016-12-06] MEDS ORDERED: Potassium & Sodium Phosphate PO ONE (15:30)
[2016-12-06] MEDS ORDERED: Potassium Chloride 20 mEq ER Tab PO ONE ×2 (15:36→19:37)
[2016-12-06] MEDS: Potassium & Sodium Phosphate PO ONE ×2 (17:43→22:05)
[2016-12-06 21:16] LABS: CK-MB < 0.22 ng/mL (0.0-3.38)
--- NOTE | 2016-12-06 22:34 | CP.PCM.PN ---
Subjective - Date & Time of Evaluation Date of Evaluation: 12/06/16 Time of Evaluation: 22:34 - Subjective Subjective: CHIEF COMPLAINTS TODAY : EVENTS NOTED THIS AM. Patient had an episode of syncope, hypoglycemia, tachycardia and elevated blood pressure. Patient reports having palpitations and chest pain. EKG and ROMIs were ordered NOTED BY Currently, patient feels better. ROS. HEENT : N. Resp : No cough, wheezing ,pleuritic CP ,or hemoptysis Cardio : No anginal CP, PND, orthopnea, palpitation GI : No abd.pain, n/v ,diarrhea or GI bleeding . 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 Musculoskel : No joint swelling , Derm : No rash Psych : Normal affect. Ext : No swelling ,calf pain PE. Pt. is alert awake in no distress. V.S As noted in the chart Head ,ear nose,throat and eyes : Normal. Neck : Supple with normal carotids. Lungs: Clear air entry. Heart : S1 & S2 normal WANG GRADE 2/6 IN LEFT CLAVICULAR AREA Abd : Soft non tender with normal bowel sounds. Neuro : Moves all ext. with no localized deficit. Ext : No edema with intact pulses.Non tender calves Derm : No rashes or decubitus ulcer. LABS/RADIOLOGY: REPEAT ECHO , NO EVIDENCE OF RECURRENCE OF OBSTRUCTION AT ISTHUMUS ASSESSMENT/PLAN : CASE DISCUSSED WITH MEDICAL TEAM.. CONTINUE ---RESTARTED 12/05/16 CLARITHROMYCIN 500 MG PO BID DAILY ETHAMBUTOL 400 MG BY MOUTH 3 TIMES A DAY DAILY. RIFAMPIN 300 MG BY MOUTH TWICE A DAY DAILY. WATCH LFTS WEEKLY PATIENT TO CONTINUE MAC THERAPY FOR 6 MONTHS MORE TO CMPLETE 12MONTHS RX. F/U SPUTUM FOR AFB X 3. PATIENT'S MOTHER AT BEDSIDE. PATIENT CANNOT DRINK WITH THE MEDICATIONS OTHERWISE WILL HAVE SERIOUS SIDE EFFECTS AND UNABLE TO TOLERATE MEDICATIONS. WILL. DISCUSS WITH CARDIOLOGY. Objective - Vital Signs/Intake and Output Vital Signs (last 24 hours): Temp Pulse Resp BP Pulse Ox 97.9 F 111 H 20 136/76 98 12/06/16 16:17 12/06/16 16:17 12/06/16 16:17 12/06/16 16:17 12/06/16 16:17 Intake and Output: 12/06/16 12/07/16 18:59 06:59 Intake Total 820 Balance 820 - Medications Medications: Current Medications Amlodipine Besylate (Norvasc) 5 mg PO DAILY [facility] Last Admin: 12/06/16 10:44 Dose: 5 mg Aspirin (Aspirin Chewable) 81 mg PO DAILY [facility] Last Admin: 12/06/16 10:43 Dose: 81 mg Chlordiazepoxide (Librium) 25 mg PO Q4H PRN PRN Reason: Alcohol Withdrawal Last Admin: 12/06/16 17:49 Dose: 25 mg Clarithromycin (Biaxin Filmtab) 500 mg PO Q12H [facility] Last Admin: 12/06/16 18:51 Dose: 500 mg Clonidine HCl (Catapres) 0.1 mg PO Q4H PRN PRN Reason: Symptoms of alcohol withdrawl Clopidogrel Bisulfate (Plavix) 75 mg PO DAILY [facility] Last Admin: 12/06/16 10:43 Dose: 75 mg Escitalopram Oxalate (Lexapro) 10 mg PO DAILY [facility] Last Admin: 12/06/16 10:44 Dose: 10 mg Ethambutol HCl (Myambutol) 400 mg PO TID [facility] Last Admin: 12/06/16 17:43 Dose: 400 mg Folic Acid (Folic Acid) 1 mg PO DAILY [facility] Last Admin: 12/06/16 10:45 Dose: 1 mg Gabapentin (Neurontin) 300 mg PO TID [facility] Last Admin: 12/06/16 17:42 Dose: 300 mg Heparin Sodium (Porcine) (Heparin) 5,000 units SC Q12 [facility] Last Admin: 12/06/16 21:58 Dose: 5,000 units Hydralazine HCl (Apresoline) 10 mg IVP Q6H PRN PRN Reason: Systolic Blood Pressure Hydroxyzine HCl (Atarax) 50 mg PO Q6H PRN PRN Reason: Anxiety Last Admin: 12/06/16 21:58 Dose: 50 mg Sodium Chloride (Sodium Chloride 0.9%) 1,000 mls @ 100 mls/hr IV .Q10H [facility] Last Admin: 12/06/16 13:20 Dose: 100 mls/hr Ibuprofen (Motrin Tab) 600 mg PO Q6H PRN PRN Reason: Pain, moderate (4-7) Last Admin: 12/06/16 17:09 Dose: 600 mg Metoprolol Tartrate (Lopressor) 25 mg PO DAILY [facility] Multivitamins (Hexavitamin) 1 tab PO DAILY [facility] Last Admin: 12/06/16 10:44 Dose: 1 tab Naltrexone HCl (Revia) 50 mg PO DAILY [facility] Last Admin: 12/06/16 11:42 Dose: 50 mg Potassium Phos/Sodium Phos (Neutra-Phos) 1 pkt PO ONCE ONE Stop: 12/07/16 15:01 Rifampin (Rifampin) 300 mg PO BID [facility] Last Admin: 12/06/16 11:21 Dose: 300 mg Thiamine HCl (Vitamin B1 Tab) 100 mg PO DAILY [facility] Last Admin: 12/06/16 10:45 Dose: 100 mg Tramadol HCl (Ultram) 50 mg PO TID [facility] Last Admin: 12/06/16 17:42 Dose: 50 mg Trazodone HCl (Desyrel) 100 mg PO HS PRN PRN Reason: Insomnia Last Admin: 12/06/16 21:58 Dose: 100 mg - Labs Labs: 12/06/16 14:21 12/06/16 14:21 Assessment and Plan (1) Pulmonary Mycobacterium avium complex (MAC) infection Status: Acute (2) Chest pressure Status: Acute (3) Hypertensive emergency Status: Acute (4) History of aortic valve replacement Status: Acute (5) Coarctation of aorta, congenital Status: Acute (6) Depression with anxiety Status: Acute
[2016-12-07 01:56] LABS: CK-MB < 0.22 ng/mL (0.0-3.38)
--- NOTE | 2016-12-07 06:31 | CARD ---
APPROVED REPORT EXAM: Two-dimensional and M-mode echocardiogram with Doppler and color Doppler. Other Information Quality : LimitedRhythm : INDICATION Syncope FOLLOW UP STUDY FOR VISUAL COARCTATION OF AORTA Mitral Valve E/A ratio0.0 TDI E/Lateral E'0.0E/Medial E'0.0 <Conclusion> Coartation seems to be corrected nl velocities possible bicuspid aortic valve clinical correlation indicated
[2016-12-07 07:24] LABS: BASO # 0.1 K/uL (0.0-0.2); BASO % 2.2 % (0.0-2.0); EOS # 0.1 K/uL (0.0-0.7); HEMOGLOBIN 13.5 g/dL (12.0-18.0); LYMPH # 1.6 K/uL (1.0-4.3); LYMPH % 25.1 % (20.0-40.0); MEAN CELL VOLUME 82.8 fL (80.0-94.0); MEAN CORPUSCULAR HEMOGLOBIN 26.7 pg (27.0-31.0); MEAN CORPUSCULAR HGB CONC 32.2 g/dL (33.0-37.0); MEAN PLATELET VOLUME 9.7 fL (7.2-11.7); MONO # 0.7 K/uL (0.0-0.8); MONO % 11.7 % (0.0-10.0); NEUT # 3.7 K/uL (1.8-7.0); RBC 5.04 Mil/uL (4.40-5.90); RED CELL DISTRIBUTION WIDTH 13.8 % (11.5-14.5); WHITE BLOOD COUNT 6.3 K/uL (4.8-10.8)
[2016-12-07 08:05] LABS: ALBUMIN 3.6 g/dL (3.5-5.0)
[2016-12-07 08:08] LABS: ALB/GLOB RATIO 1.2 (1.0-2.1); ALT/SGPT 29 U/L (21-72); AST/SGOT 30 U/L (17-59); BLOOD UREA NITROGEN 7 mg/dL (9-20); GFR AFRICAN-AMERICAN > 60; GFR NON-AFRICAN AMERICAN > 60
[2016-12-07 08:09] LABS: CALCIUM 8.7 mg/dl (8.6-10.4); MAGNESIUM 1.9 mg/dL (1.6-2.3)
[2016-12-07] MEDS: Multiple Vitamins Tab PO SCH (09:49)
[2016-12-07] MEDS: Sodium Chloride 0.9% 1,000 ML IV SCH (09:57)
[2016-12-07] MEDS ORDERED: Aluminum Hydroxide/Magnesium Hydroxide Susp (30 mL) PO ONE (12:00)
--- NOTE | 2016-12-07 13:30 | CP.PCM.PN ---
Subjective - Date & Time of Evaluation Date of Evaluation: 12/07/16 Time of Evaluation: 15:12 - Subjective Subjective: CHART REVIEWED AND PT EXAMINED SEE ORDERS Objective - Vital Signs/Intake and Output Vital Signs (last 24 hours): Temp Pulse Resp BP Pulse Ox 97.4 F L 91 H 20 142/82 20 L 12/07/16 07:25 12/07/16 09:47 12/06/16 23:10 12/07/16 09:49 12/07/16 07:25 - Medications Medications: Current Medications Amlodipine Besylate (Norvasc) 5 mg PO DAILY [facility] Last Admin: 12/07/16 09:49 Dose: 5 mg Aspirin (Aspirin Chewable) 81 mg PO DAILY [facility] Last Admin: 12/07/16 09:48 Dose: 81 mg Chlordiazepoxide (Librium) 25 mg PO Q4H PRN PRN Reason: Alcohol Withdrawal Last Admin: 12/07/16 08:35 Dose: 25 mg Clarithromycin (Biaxin Filmtab) 500 mg PO Q12H [facility] Last Admin: 12/07/16 06:24 Dose: 500 mg Clonidine HCl (Catapres) 0.1 mg PO Q4H PRN PRN Reason: Symptoms of alcohol withdrawl Clopidogrel Bisulfate (Plavix) 75 mg PO DAILY [facility] Last Admin: 12/07/16 09:48 Dose: 75 mg Escitalopram Oxalate (Lexapro) 10 mg PO DAILY [facility] Last Admin: 12/07/16 09:49 Dose: Not Given Ethambutol HCl (Myambutol) 400 mg PO TID [facility] Last Admin: 12/07/16 09:50 Dose: 400 mg Folic Acid (Folic Acid) 1 mg PO DAILY [facility] Last Admin: 12/07/16 09:49 Dose: 1 mg Gabapentin (Neurontin) 300 mg PO TID [facility] Last Admin: 12/06/16 17:42 Dose: 300 mg Heparin Sodium (Porcine) (Heparin) 5,000 units SC Q12 [facility] Last Admin: 12/07/16 09:52 Dose: 5,000 units Hydralazine HCl (Apresoline) 10 mg IVP Q6H PRN PRN Reason: Systolic Blood Pressure Hydroxyzine HCl (Atarax) 50 mg PO Q6H PRN PRN Reason: Anxiety Last Admin: 12/06/16 21:58 Dose: 50 mg Sodium Chloride (Sodium Chloride 0.9%) 1,000 mls @ 100 mls/hr IV .Q10H [facility] Last Admin: 12/07/16 09:57 Dose: 100 mls/hr Ibuprofen (Motrin Tab) 600 mg PO Q6H PRN PRN Reason: Pain, moderate (4-7) Last Admin: 12/07/16 08:35 Dose: 600 mg Metoprolol Tartrate (Lopressor) 25 mg PO DAILY [facility] Last Admin: 12/07/16 09:49 Dose: 25 mg Multivitamins (Hexavitamin) 1 tab PO DAILY [facility] Last Admin: 12/07/16 09:49 Dose: 1 tab Naltrexone HCl (Revia) 50 mg PO DAILY [facility] Last Admin: 12/07/16 09:52 Dose: 50 mg Potassium Phos/Sodium Phos (Neutra-Phos) 1 pkt PO ONCE ONE Stop: 12/07/16 15:01 Rifampin (Rifampin Cap) 300 mg PO BID [facility] Thiamine HCl (Vitamin B1 Tab) 100 mg PO DAILY [facility] Last Admin: 12/07/16 09:49 Dose: 100 mg Tramadol HCl (Ultram) 50 mg PO TID [facility] Last Admin: 12/07/16 09:50 Dose: 50 mg Trazodone HCl (Desyrel) 100 mg PO HS PRN PRN Reason: Insomnia Last Admin: 12/06/16 21:58 Dose: 100 mg - Labs Labs: 12/07/16 07:06 12/07/16 07:06
--- NOTE | 2016-12-07 13:56 | CP.PCM.PN ---
Objective - Vital Signs/Intake and Output Vital Signs (last 24 hours): Temp Pulse Resp BP Pulse Ox 97.4 F L 91 H 20 142/82 20 L 12/07/16 07:25 12/07/16 09:47 12/06/16 23:10 12/07/16 09:49 12/07/16 07:25 Intake and Output: 12/07/16 12/07/16 06:59 18:59 Intake Total 780 Balance 780 - Medications Medications: Current Medications Amlodipine Besylate (Norvasc) 5 mg PO DAILY [facility] Last Admin: 12/07/16 09:49 Dose: 5 mg Aspirin (Aspirin Chewable) 81 mg PO DAILY [facility] Last Admin: 12/07/16 09:48 Dose: 81 mg Chlordiazepoxide (Librium) 25 mg PO Q4H PRN PRN Reason: Alcohol Withdrawal Last Admin: 12/07/16 08:35 Dose: 25 mg Clarithromycin (Biaxin Filmtab) 500 mg PO Q12H [facility] Last Admin: 12/07/16 06:24 Dose: 500 mg Clonidine HCl (Catapres) 0.1 mg PO Q4H PRN PRN Reason: Symptoms of alcohol withdrawl Clopidogrel Bisulfate (Plavix) 75 mg PO DAILY [facility] Last Admin: 12/07/16 09:48 Dose: 75 mg Escitalopram Oxalate (Lexapro) 10 mg PO DAILY [facility] Last Admin: 12/07/16 09:49 Dose: Not Given Ethambutol HCl (Myambutol) 400 mg PO TID [facility] Last Admin: 12/07/16 09:50 Dose: 400 mg Folic Acid (Folic Acid) 1 mg PO DAILY [facility] Last Admin: 12/07/16 09:49 Dose: 1 mg Gabapentin (Neurontin) 300 mg PO TID [facility] Last Admin: 12/06/16 17:42 Dose: 300 mg Heparin Sodium (Porcine) (Heparin) 5,000 units SC Q12 [facility] Last Admin: 12/07/16 09:52 Dose: 5,000 units Hydralazine HCl (Apresoline) 10 mg IVP Q6H PRN PRN Reason: Systolic Blood Pressure Hydroxyzine HCl (Atarax) 50 mg PO Q6H PRN PRN Reason: Anxiety Last Admin: 12/06/16 21:58 Dose: 50 mg Sodium Chloride (Sodium Chloride 0.9%) 1,000 mls @ 100 mls/hr IV .Q10H [facility] Last Admin: 12/07/16 09:57 Dose: 100 mls/hr Ibuprofen (Motrin Tab) 600 mg PO Q6H PRN PRN Reason: Pain, moderate (4-7) Last Admin: 12/07/16 08:35 Dose: 600 mg Metoprolol Tartrate (Lopressor) 25 mg PO DAILY [facility] Last Admin: 12/07/16 09:49 Dose: 25 mg Multivitamins (Hexavitamin) 1 tab PO DAILY [facility] Last Admin: 12/07/16 09:49 Dose: 1 tab Naltrexone HCl (Revia) 50 mg PO DAILY [facility] Last Admin: 12/07/16 09:52 Dose: 50 mg Potassium Phos/Sodium Phos (Neutra-Phos) 1 pkt PO ONCE ONE Stop: 12/07/16 15:01 Rifampin (Rifampin Cap) 300 mg PO BID [facility] Thiamine HCl (Vitamin B1 Tab) 100 mg PO DAILY [facility] Last Admin: 12/07/16 09:49 Dose: 100 mg Tramadol HCl (Ultram) 50 mg PO TID [facility] Last Admin: 12/07/16 09:50 Dose: 50 mg Trazodone HCl (Desyrel) 100 mg PO HS PRN PRN Reason: Insomnia Last Admin: 12/06/16 21:58 Dose: 100 mg - Labs Labs: 12/07/16 07:06 12/07/16 07:06
[2016-12-07] MEDS ORDERED: Aluminum Hydroxide/Magnesium Hydroxide Susp (30 mL) PO PRN (14:18)
[2016-12-07] MEDS ORDERED: Potassium & Sodium Phosphate PO ONE (15:00)
[2016-12-07 16:25] VITALS: O2SAT 99
--- NOTE | 2016-12-07 16:49 | PCM.PYCHPN ---
Psychiatric Progress Note - Psychiatric Progress Note Patient seen today, length of contact: 16 min Patient Chief Complaint: i am good. Problems Identified/Issues Discussed: patient was seen and evaluated, chart reviewed and discussed with the nurse. Pt reports improvement n his mood an depressive symptoms. Denies any SI/HI and denies any withdrawal symptoms. He is taking medications and denies any side effects. Medication Change: No Medical Record Reviewed: Yes Mental Status Examination - Cognitive Function Orientation: Person, Place, Situation, Time Memory: Intact Attention: WNL Concentration: WNL Association: WNL Fund of Knowledge: WNL - Mood Mood: Neutral - Affect Affect: Constricted - Speech Speech: Appropriate, Soft - Formal Thought Process Formal Thought Process: No Impairment - Suicidal Ideation Suicidal Ideation: No - Homicidal Ideation Homicidal Ideation: No Goal/Treatment Plan - Goal/Treatment Plan Need for Continued Stay: Failed transitioning Progress Toward Problem(s) and Goals/Treatment Plan: MDD moderate. Lexapro Gabapentin Trazodone Attend groups and activities [place] for abstinence and CBT for relapse prevention Support and psychoeducation pt psychiatrically stable to be dischanged. - Smoking Cessation Smoking Cessation Initiated: No
--- NOTE | 2016-12-07 18:11 | CP.PCM.DIS ---
Provider - Provider Date of Admission: 11/30/16 05:41 Attending physician: Pavan Singleton DO Time Spent in preparation of Discharge (in minutes): 40 Diagnosis - Discharge Diagnosis (1) Depression with anxiety Status: Chronic Comment: See hospital summary for further details. (2) Chest pressure Status: Chronic Comment: See hospital summary for further details. (3) Alcohol abuse Status: Chronic Comment: See hospital summary for further details. (4) History of aortic valve replacement Status: Chronic Comment: See hospital summary for further details. (5) Hypertensive emergency Status: Resolved Comment: See hospital summary for further details. (6) Hypoglycemia Status: Resolved Comment: See hospital summary for further details. (7) Hypokalemia Status: Resolved Comment: See hospital summary for further details. Hospital Course - Lab Results Lab Results: Most Recent Lab Values WBC 6.3 K/uL (4.8-10.8) 12/07/16 07:06 RBC 5.04 Mil/uL (4.40-5.90) 12/07/16 07:06 Hgb 13.5 g/dL (12.0-18.0) 12/07/16 07:06 Hct 41.8 % (35.0-51.0) 12/07/16 07:06 MCV 82.8 fL (80.0-94.0) 12/07/16 07:06 MCH 26.7 pg (27.0-31.0) L 12/07/16 07:06 MCHC 32.2 g/dL (33.0-37.0) L 12/07/16 07:06 RDW 13.8 % (11.5-14.5) 12/07/16 07:06 Plt Count 205 K/uL (130-400) 12/07/16 07:06 MPV 9.7 fL (7.2-11.7) 12/07/16 07:06 Neut % (Auto) 59.0 % (50.0-75.0) 12/07/16 07:06 Lymph % (Auto) 25.1 % (20.0-40.0) 12/07/16 07:06 Sauk % (Auto) 11.7 % (0.0-10.0) H 12/07/16 07:06 Eos % (Auto) 2.0 % (0.0-4.0) 12/07/16 07:06 Baso % (Auto) 2.2 % (0.0-2.0) H 12/07/16 07:06 Neut # 3.7 K/uL (1.8-7.0) 12/07/16 07:06 Lymph # 1.6 K/uL (1.0-4.3) 12/07/16 07:06 Sauk # 0.7 K/uL (0.0-0.8) 12/07/16 07:06 Eos # 0.1 K/uL (0.0-0.7) 12/07/16 07:06 Baso # 0.1 K/uL (0.0-0.2) 12/07/16 07:06 ESR 3 mm/hr (0-15) 12/06/16 07:03 Sodium 138 mmol/L (132-148) 12/07/16 07:06 Potassium 4.3 mmol/L (3.6-5.2) 12/07/16 07:06 Chloride 105 mmol/L (98-107) 12/07/16 07:06 Carbon Dioxide 25 mmol/L (22-30) 12/07/16 07:06 Anion Gap 12 (10-20) 12/07/16 07:06 BUN 7 mg/dL (9-20) L 12/07/16 07:06 Creatinine 0.9 MG/DL (0.8-1.5) 12/07/16 07:06 Est GFR ( Amer) > 60 12/07/16 07:06 Est GFR (Non-Af Amer) > 60 12/07/16 07:06 POC Glucose (mg/dL) 83 mg/dL (65-110) 12/07/16 11:08 Random Glucose 88 mg/dL (75-110) 12/07/16 07:06 Calcium 8.7 mg/dl (8.6-10.4) 12/07/16 07:06 Phosphorus 4.1 mg/dL (2.5-4.5) 12/07/16 07:06 Magnesium 1.9 mg/dL (1.6-2.3) 12/07/16 07:06 Total Bilirubin 1.0 mg/dL (0.2-1.3) 12/07/16 07:06 AST 30 U/L (17-59) 12/07/16 07:06 ALT 29 U/L (21-72) 12/07/16 07:06 Alkaline Phosphatase 79 U/L (38-126) 12/07/16 07:06 Total Creatine Kinase 46 U/L (55-170) L 12/07/16 01:28 CK-MB (Mass) < 0.22 ng/mL (0.0-3.38) 12/07/16 01:28 Troponin I < 0.0120 ng/mL (0.00-0.120) 12/07/16 12:22 Troponin I, Quant < 0.0120 ng/mL (0.00-0.120) 12/07/16 01:28 C-React Prot High Sens 0.21 mg/L (1.00-3.00) L 12/06/16 07:03 Total Protein 6.7 g/dL (6.3-8.3) 12/07/16 07:06 Albumin 3.6 g/dL (3.5-5.0) 12/07/16 07:06 Globulin 3.1 gm/dL (2.2-3.9) 12/07/16 07:06 Albumin/Globulin Ratio 1.2 (1.0-2.1) 12/07/16 07:06 HIV 1&2 Antibody Screen Negative (NEGATIVE) 12/06/16 07:03 - Hospital Course Hospital Course: The patient is seen, chart reviewed and case discussed. This is a 31-year-old male, single but has a girlfriend, lives with his mother and brother in [place], [place]. 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. The patient is here because he reportedly intentionally drank too much alcohol and took couple of Percocet pills. He states he did not intend to kill himself but was very "stressed and depressed." The patient admits to drinking "a lot" and when asked to specify he states more than 2 bottles of liquor and some beer. He increased the last 9 months but started when he was 18 years old. He is also a heavy marijuana smoker and he is smokes cigarettes on and off. He denies all other drugs including opiates. His urine is negative for opiates despite the alleged recent use. He says he feels depressed but he looks less so today. No suicidal ideation today. he also does not have any wdw sxs at this point. Super[employer]ising [employer] (Dr. Espinal) was consulted. Patient was evaluated and cleared by cardiology. Cardiac Workup consisted of: EKG ordered 12/06/16: sinus tachycardia at 110bpm Troponin x3 were negative ECHO (12/04/16): The left ventricle is normal size. Ejection fraction is 65-70% . The left ventricular diastolic function is normal. The aortic valve is bicuspid. No pericardial effusion. ECHO (12/05/16): Coartation seems to be corrected. Normal velocities. Psychiatry (Dr. Baldwin) was consulted. Patient was evaluated and cleared by psychiatry. Patient to attend group and activities to abstinence and cognitive behavioral therapy for relapse prevention. Patient stable for discharge per Dr. Frederick. Patient should take the medications listed below as prescribed. Patient should make an appointment and follow up with PMD within one week. Patient should also follow up with [employer] supervisor Dr. Espinal within 14 days. Patient should return to ED immediately if symptoms return or worsen. Instructions discussed with patient who understood and agreed. Newly prescribed medications: Amlodipine 5mg once daily Aspirin 81mg once daily Clarithromycin 500mg one tablet every 12 hours Clopidogrel Bisulfate (Plavix) 75mg once daily Escitalopram 10mg once daily Ethambutol 400mg one tablet three times per day Folic Acid 1mg once daily Gabapentin 300mg one tablet three times per day Metoprolol Tartrate 25mg once daily Multivitamins 1 tablet once daily Rifampin 300mg one tablet two times per day Thiamine 100mg once daily Trazodone 100mg once at bedtime This is a summary of patient's hospitalization please refer to EMR for further details of the record. Discharge Exam - Head Exam Head Exam: NORMAL INSPECTION, NORMOCEPHALIC - Eye Exam Eye Exam: Normal appearance - ENT Exam ENT Exam: Mucous Membranes Moist - Respiratory Exam Respiratory Exam: Clear to PA & Lateral, NORMAL BREATHING PATTERN. absent: Rales, Rhonchi, Wheezes, Stridor - Cardiovascular Exam Cardiovascular Exam: REGULAR RHYTHM, RRR, +S1, +S2. absent: JVD - GI/Abdominal Exam GI & Abdominal Exam: Normal Bowel Sounds, Soft. absent: Distended, Tenderness - Extremities Exam Extremities exam: normal inspection - Neurological Exam Neurological exam: Alert, Oriented x3 - Psychiatric Exam Psychiatric exam: Anxious - Skin Skin Exam: Normal Color, Warm Discharge Plan - Discharge Medications Prescriptions: amLODIPine [Norvasc] 5 mg PO DAILY #30 tab Aspirin [Aspirin Chewable] 81 mg PO DAILY #30 Clarithromycin [Biaxin Filmtab] 500 mg PO Q12H #60 tab Clopidogrel [Plavix] 75 mg PO DAILY #30 tab Escitalopram [Lexapro] 10 mg PO DAILY #30 tab Ethambutol [Myambutol] 400 mg PO TID #90 tab Folic Acid 1 mg PO DAILY #30 tab Gabapentin [Neurontin] 300 mg PO TID #90 cap Metoprolol Tartrate [Lopressor] 25 mg PO DAILY #30 tab Multivitamins [Hexavitamin] 1 tab PO DAILY #30 tab rifAMPin [Rifampin Cap] 300 mg PO BID #60 cap Thiamine [Vitamin B1 Tab] 100 mg PO DAILY #30 tab traZODone [Desyrel] 100 mg PO HS #30 tab - Follow Up Plan Condition: FAIR Disposition: HOME/ ROUTINE Instructions: Metoprolol (By mouth), Trazodone (By mouth), Rifampin (By mouth) , Clarithromycin (By mouth), Ethambutol (By mouth), Gabapentin (By mouth), Amlodipine (By mouth), Clopidogrel (By mouth), Escitalopram (By mouth), Depression (DC), Abuse of Alcohol (DC) Additional Instructions: Patient stable for discharge per Dr. Frederick. Patient should take the medications listed below as prescribed. Patient should make an appointment and follow up with PMD within one week. Patient should also follow up with [employer] Dr. Espinal within 14 days. Patient should return to ED immediately if symptoms return or worsen. Instructions discussed with patient who understood and agreed. Newly prescribed medications: Amlodipine 5mg once daily Aspirin 81mg once daily Clarithromycin 500mg one tablet every 12 hours Clopidogrel Bisulfate (Plavix) 75mg once daily Escitalopram 10mg once daily Ethambutol 400mg one tablet three times per day Folic Acid 1mg once daily Gabapentin 300mg one tablet three times per day Metoprolol Tartrate 25mg once daily Multivitamins 1 tablet once daily Rifampin 300mg one tablet two times per day Thiamine 100mg once daily Trazodone 100mg once at bedtime
[2016-12-07 20:20] VITALS: BP 186/123; PULSE 144; TEMP 97.9
[2016-12-08 08:36] LABS: OPIATES, UR NEGATIVE (NEGATIVE); PHENCYCLIDINE, UR NEGATIVE (NEGATIVE)
[2016-12-08 08:43] LABS: BARBITURATES, UR NEGATIVE (NEGATIVE)
[2016-12-08 09:04] LABS: BENZODIAZEPINES, UR POSITIVE (NEGATIVE)
--- NOTE | 2016-12-10 14:08 | CARD ---
APPROVED REPORT EKG Measurement Heart [id number] [place] [id number] <Conclusion> Normal sinus rhythm Right axis deviation Pulmonary disease pattern Incomplete right bundle branch block Abnormal ECG
--- NOTE | 2016-12-17 12:41 | CARD ---
APPROVED REPORT EKG Measurement Heart [id number] [place] 154P46 [id number] <Conclusion> Sinus tachycardia Right axis deviation Abnormal ECG
--- NOTE | 2016-12-17 12:41 | CARD ---
APPROVED REPORT EKG Measurement Heart [id number] [place] 150P50 [id number] <Conclusion> Sinus tachycardia Right axis deviation Abnormal ECG
--- NOTE | 2016-12-17 12:43 | CARD ---
APPROVED REPORT EKG Measurement Heart [id number] [place] 152P17 [id number] <Conclusion> Normal sinus rhythm with sinus arrhythmia Right axis deviation Abnormal ECG
== END 2016-12-07 19:59 | disposition home or self-care (01) | DRG 430 ==
LOC: C.ER 05:24 → C.5E 05:41 → C.5T 12-04 10:45
PROVIDERS: ADMIT Hospitalist; ATTEND Hospitalist
PROC: HZ2ZZZZ Detoxification Services for Substance Abuse Treatment (ICD-10-PCS; principal; 2016-11-30)
PROC: HZ56ZZZ Individual Psychotherapy for Substance Abuse Treatment, Psychoeducation (ICD-10-PCS; 2016-11-30)
PROC: HZ59ZZZ Individual Psychotherapy for Substance Abuse Treatment, Supportive (ICD-10-PCS; 2016-11-30)
DX: F32.1 Major depressive disorder, single episode, moderate (principal); E16.2 Hypoglycemia, unspecified; E87.6 Hypokalemia; F41.8 Other specified anxiety disorders; F12.90 Cannabis use, unspecified, uncomplicated; Z95.2 Presence of prosthetic heart valve; I16.1 Hypertensive emergency